=== PATIENT | male | born 1965 | race Caucasian/White ===

== ENCOUNTER 2019-01-23 17:32 | Observation (INO) | payer MEDICAID ==
[2019-01-23] MEDS ORDERED: Zofran 4 MG/2 ML VIAL IV ONE (18:13)
[2019-01-23] MEDS ORDERED: MORPHINE SULFATE 4 MG INJ IV ONE (18:13)
[2019-01-23] MEDS ORDERED: Sodium Chloride 0.9% 1000 ML 1,000 ML IV STA ×2 (18:13→18:42)
[2019-01-23] MEDS ORDERED: Zofran 4 MG/2 ML VIAL ONE (18:15)
[2019-01-23] MEDS ORDERED: MORPHINE SULFATE 4 MG INJ ONE (18:16)
[2019-01-23] MEDS ORDERED: Sodium Chloride 0.9% 1000 ML 1,000 ML ONE ×2 (18:16→19:24)
[2019-01-23 18:20] LABS: BASOPHIL % 0.3 % (0.0-0.4); Basophil (Absolute #) 0.03 (0-0.4); Eosinophil % 1.4 % (0.00-5.0); Eosinophil (Absolute #) 0.17 (0-0.5); Granulocyte Absolute (ANC) 8.36 (1.4-6.9); Granulocytes % 70.2 % (36.0-66.0); Hematocrit 56.7 % (42-50); Hemoglobin 19.8 gm/dl (12.5-18.0); Lymphocyte (Absolute #) 2.58 (1.0-4.6); Lymphocytes % 21.7 % (24.0-44.0); Mean Cell Volume 90.4 fl (78-100); Mean Corpuscular Hgb Concent. 34.9 g/dl (32-36); Mean Platelet Volume 11.1 fl (6-9.5); Monocyte (Absolute #) 0.76 (0.0-1.3); Monocytes % 6.4 % (0.0-12.0); Platelet Count 246 K/mm3 (150-450); Red Blood Count 6.27 M/mm3 (4.1-5.6); Red Cell Distribution Width 13.2 % (11.5-14.0); White Blood Count 11.9 K/mm3 (4.0-10.5)
[2019-01-23 18:24] LABS: Appearance SLIGHTLY CLOUDY (CLEAR); Bacteria MODERATE /HPF (NEGATIVE); Bilirubin NEGATIVE (NEGATIVE); Blood SMALL Ery/ul (0-5); Glucose NEGATIVE (NEGATIVE); Ketones MODERATE (NEGATIVE); Leukocyte Esterase MODERATE (NEGATIVE); Mucus SLIGHT /HPF (NEGATIVE); Nitrite NEGATIVE (NEGATIVE); Protein,Urine Dip 30 (Negative); RBC 0-2 /HPF (0-2); Specific Gravity 1.025 (1.005-1.025); Urobilinogen 4 mg/dL (0-1); WBC 51-100 /HPF (0-5)
[2019-01-23 18:25] LABS: Mean Corpuscular Hemoglobin 31.5 pg (26-32)
[2019-01-23 18:32] LABS: ALBUMIN 4.7 g/dL (3.5-5.0); ALKALINE PHOSPHATASE 92 U/L (38-126); AMYLASE 70 U/L (30-110); ANION GAP 15.9 MEQ/L (5-15); BLOOD UREA NITROGEN 17 mg/dL (9-20); CHLORIDE 98 mmol/L (98-107); Calcium 10.5 mg/dL (8.4-10.2); Carbon Dioxide 30 mmol/L (22-30); Creatinine 1 0.66 mg/dL (0.66-1.25); Glucose 100 mg/dL (74-106); Potassium 3.8 mmol/L (3.5-5.1); SGOT/AST 70 U/L (17-59); SGPT/ALT 85 U/L (0-50); SODIUM 139 mmol/L (137-145); Total Protein 8.8 g/dL (6.3-8.2)
[2019-01-23 18:37] LABS: Barbiturate,Urine NEGATIVE (NEGATIVE); Benzodiazepine,Urine NEGATIVE (NEGATIVE); Cocaine,Urine NEGATIVE (NEGATIVE); Methadone,Urine NEGATIVE (NEGATIVE); Opiate,Urine NEGATIVE (NEGATIVE); PCP,Urine NEGATIVE (NEGATIVE); THC,Urine POSITIVE (NEGATIVE)
[2019-01-23] MEDS ORDERED: ROCEPHIN 1 Gm-D5w 50 ml Bag** 1 G/50 ML IVPB IV STA (19:00)
--- NOTE | 2019-01-23 19:04 | ERPHSYRPT ---
- History of Present Illness Historian: patient Exam Limitations: no limitations Patient Subjective Stated Complaint: Abdominal pain Triage Nursing Assessment: Patient ambulated back to ED and transferred self to bed. Patient A+O X 3. Patient complains of abdominal pain since yesterday at noon. Patient complains of stabbing pain to abdomen 04/25. Abdomen hard and round and tender to touch with hypoactive BS X 4. Patient has notable umbilical hernia above pain. Patient complains of N/V. Patient denies diarrhea. Timing/Duration: yesterday Activities at Onset: other (fell and bumped his abdomen on the car while working on) Quality: stabbing, throbbing Abdominal Pain Onset Location: periumbilical Pain Radiation: no radiation Severity of Pain-Max: moderate Severity of Pain-Current: moderate Modifying Factors: Improves With: nothing Associated Symptoms: nausea, vomiting, other (periumbilical pain), No back, No chest pain, No diaphoresis, No diarrhea, No fever/chills, No fatigue, No headache, No heartburn, No loss of appetite, No neck pain, No rash, No shortness of breath, No syncope Previous symptoms: no prior history Hx Influenza Vaccination/Date Given: No Hx Pneumococcal Vaccination/Date Given: No Immunizations Up to Date: Yes <CITLALI FOWLER - Last Filed: 01/23/19 19:10> <JORDYN LINTON - Last Filed: 01/23/19 21:38> - History of Present Illness Time Seen by Provider: 01/23/19 18:14 Physician History: 53-year-old white male who states he is previously healthy. Patient arrives with complaint of periumbilical abdominal pain persistent vomiting symptoms since yesterday no fevers. Patient states he was working on his car and bumped his abdomen and pain persists. Patient has a known periumbilical hernia he states that this is tender. Past medical history is negative past surgical history is negative. (CITLALI FOWLER) Allergies/Adverse Reactions: No Known Drug Allergies Allergy (Unverified 01/23/19 17:51) Home Medications: No Reportable Medications [No Reported Medications] 01/23/19 [History] - Review of Systems Constitutional: No Fever, No Chills Eyes: No Symptoms Ears, Nose, & Throat: No Symptoms Respiratory: No Cough, No Dyspnea Abdominal/Gastrointestinal: Abdominal Pain, Nausea, Vomiting, Other (firmness of periumbilical hernia) Genitourinary Symptoms: No Dysuria Musculoskeletal: No Back Pain, No Neck Pain Skin: No Rash Neurological: No Dizziness, No Focal Weakness, No Sensory Changes Psychological: No Symptoms Endocrine: No Symptoms All Other Systems: Reviewed and Negative <CITLALI FOWLER - Last Filed: 01/23/19 19:10> - Past Medical History Pertinent Past Medical History: No Neurological History: No Pertinent History ENT History: No Pertinent History Cardiac History: No Pertinent History Respiratory History: No Pertinent History Endocrine Medical History: No Pertinent History Musculoskeletal History: No Pertinent History GI Medical History: No Pertinent History History: No Pertinent History Psycho-Social History: No Pertinent History Male Reproductive Disorders: No Pertinent History - Past Surgical History Past Surgical History: No Neuro Surgical History: No Pertinent History Cardiac: No Pertinent History Respiratory: No Pertinent History Gastrointestinal: No Pertinent History Genitourinary: No Pertinent History Musculoskeletal: No Pertinent History Male Surgical History: No Pertinent History - Social History Smoking Status: Current every day smoker How long have you smoked: years Exposure to second hand smoke: No Drug Use: none Patient Lives Alone: No <CITLALI FOWLER - Last Filed: 01/23/19 19:10> - Physical Exam General Appearance: moderate distress, alert Eye Exam: PERRL/EOMI, eyes nml inspection Ears, Nose, Throat Exam: normal ENT inspection, pharynx normal, moist mucous membranes Neck Exam: normal inspection, non-tender, supple, full range of motion Respiratory Exam: normal breath sounds, lungs clear, No respiratory distress Cardiovascular Exam: regular rate/rhythm, normal heart sounds, capillary refill <2 sec Gastrointestinal/Abdomen Exam: soft, normal bowel sounds, tenderness ( tenderness in periumbilical region with palpation), hernia (umbilical hernia firm tender) Back Exam: normal inspection, normal range of motion, No CVA tenderness, No vertebral tenderness Extremity Exam: normal inspection, normal range of motion, pelvis stable Neurologic Exam: alert, oriented x 3, cooperative, 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-XII 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 as tested, normal mood/affect, nml cerebellar function, sensation nml, No motor deficits Skin Exam: normal color, warm, dry SpO2 Interpretation: normal (95%) SpO2: 95 <CITLALI FOWLER - Last Filed: 01/23/19 19:10> - Nursing Vital Signs Nursing Vital Signs: Initial Vital Signs Temperature 97.5 F 01/23/19 17:52 Pulse Rate 75 01/23/19 17:52 Respiratory Rate 18 01/23/19 17:52 Blood Pressure 147/99 01/23/19 17:52 O2 Sat by Pulse Oximetry 97 01/23/19 17:52 Pain Scale Pain Intensity 6 - Course Nursing assessment & vital signs reviewed: Yes <CITLALI FOWLER - Last Filed: 01/23/19 19:10> Ordered Tests: Active Orders 24 hr Category Date Time Status IV Insertion STAT Care 01/23/19 18:13 Active ABDOMEN AND PELVIS W CONTRAST [CT] Stat Exams 01/23/19 18:44 Taken AMYLASE Stat Lab 01/23/19 18:10 Completed BLOOD CULTURE Stat Lab 01/23/19 18:43 Ordered BLOOD CULTURE Stat Lab 01/23/19 18:57 Received CBC W DIFF Stat Lab 01/23/19 18:10 Completed CMP Stat Lab 01/23/19 18:10 Completed CULTURE,URINE Stat Lab 01/23/19 18:10 Received ETHYL ALCOHOL Stat Lab 01/23/19 18:10 Completed LIPASE Stat Lab 01/23/19 18:10 Completed Lactic Acid Stat Lab 01/23/19 18:45 Completed UA W/RFX UR CULTURE Stat Lab 01/23/19 18:10 Completed Urine Triage Profile Stat Lab 01/23/19 18:10 Completed Transfer Order Routine Transfer 01/23/19 Ordered Medication Summary Generic Name Dose Route Start Last Admin Trade Name Freq PRN Reason Stop Dose Admin Metronidazole 500 mg in 100 mls @ 200 mls/hr 01/23/19 21:27 Flagyl 500 Mg Ivpb IV 01/23/19 21:56 STAT STA Discontinued Medications Generic Name Dose Route Start Last Admin Trade Name Freq PRN Reason Stop Dose Admin Hydromorphone HCl 1 mg 01/23/19 21:05 01/23/19 21:13 Hydromorphone 1 Mg/Ml Ampule IV 01/23/19 21:06 1 mg STAT ONE Administration Hydromorphone HCl Confirm 01/23/19 21:12 Hydromorphone 1 Mg/Ml Ampule Administered 01/23/19 21:13 Dose 1 mg .ROUTE .STK-MED ONE Sodium Chloride 1,000 mls @ 999 mls/hr 01/23/19 18:13 01/23/19 19:27 Sodium Chloride 0.9% 1000 Ml IV 01/23/19 19:13 Infused .Q1H1M STA Infusion Sodium Chloride Confirm 01/23/19 18:16 Sodium Chloride 0.9% 1000 Ml Administered 01/23/19 18:17 Dose 1,000 mls @ ud .ROUTE .STK-MED ONE Sodium Chloride 1,000 mls @ 999 mls/hr 01/23/19 18:42 01/23/19 19:27 Sodium Chloride 0.9% 1000 Ml IV 01/23/19 19:42 999 mls/hr .Q1H1M STA Administration Ceftriaxone Sodium/Dextrose 1 g in 50 mls @ 100 mls/hr 01/23/19 19:00 19:43 Rocephin 1 Gm-D5w 50 Ml Bag IV 01/23/19 19:29 100 mls/hr STAT STA 100 mls/hr Administration Sodium Chloride Confirm 01/23/19 19:24 Sodium Chloride 0.9% 1000 Ml Administered 01/23/19 19:25 Dose 1,000 mls @ ud .ROUTE .STK-MED ONE Ceftriaxone Sodium/Dextrose Confirm 01/23/19 19:37 Rocephin 1 Gm-D5w 50 Ml Bag Administered 01/23/19 19:38 Dose 1 g in 50 mls @ ud IV .STK-MED ONE Morphine Sulfate 4 mg 01/23/19 18:13 01/23/19 18:18 Morphine Sulfate 4 Mg Inj IV 01/23/19 18:14 4 mg STAT ONE Administration Morphine Sulfate Confirm 01/23/19 18:16 Morphine Sulfate 4 Mg Inj Administered 01/23/19 18:17 Dose 4 mg .ROUTE .STK-MED ONE Ondansetron HCl 4 mg 01/23/19 18:13 01/23/19 18:18 Zofran 4 Mg/2 Ml Vial IV 01/23/19 18:14 4 mg STAT ONE Administration Ondansetron HCl Confirm 01/23/19 18:15 Zofran 4 Mg/2 Ml Vial Administered 01/23/19 18:16 Dose 4 mg .ROUTE .STK-MED ONE Lab/Rad Data: Laboratory Result Diagrams 01/23/19 18:10 01/23/19 18:10 Laboratory Results 01/23/19 01/23/19 01/23/19 Range/Units 18:45 18:10 18:10 WBC (4.0-10.5) K/mm3 RBC (4.1-5.6) M/mm3 Hgb (12.5-18.0) gm/dl Hct (42-50) % MCV (78-100) fl MCH (26-32) pg MCHC (32-36) g/dl RDW (11.5-14.0) % Plt Count (150-450) K/mm3 MPV (6-9.5) fl Gran % (36.0-66.0) % Eos # (Auto) (0-0.5) Absolute Lymphs (auto) (1.0-4.6) Absolute Monos (auto) (0.0-1.3) Lymphocytes % (24.0-44.0) % Monocytes % (0.0-12.0) % Eosinophils % (0.00-5.0) % Basophils % (0.0-0.4) % Absolute Granulocytes (1.4-6.9) Basophils # (0-0.4) Sodium (137-145) mmol/L Potassium (3.5-5.1) mmol/L Chloride (98-107) mmol/L Carbon Dioxide (22-30) mmol/L Anion Gap (5-15) MEQ/L BUN (9-20) mg/dL Creatinine (0.66-1.25) mg/dL Estimated GFR ML/MIN Glucose (74-106) mg/dL Lactic Acid 1.8 (0.4-2.0) Calcium (8.4-10.2) mg/dL Total Bilirubin (0.2-1.3) mg/dL AST (17-59) U/L ALT (0-50) U/L Alkaline Phosphatase (38-126) U/L Serum Total Protein (6.3-8.2) g/dL Albumin (3.5-5.0) g/dL Amylase (30-110) U/L Lipase (23-300) U/L Urine Color DARK YELLOW (YELLOW) Urine Appearance SLIGHTLY CLOUDY (CLEAR) Urine pH 6.0 (5-6) Ur Specific Brenton 1.025 (1.005-1.025) Urine Protein 30 (Negative) Urine Ketones MODERATE (NEGATIVE) Urine Blood SMALL (0-5) Darshan/ul Urine Nitrite NEGATIVE (NEGATIVE) Urine Bilirubin NEGATIVE (NEGATIVE) Urine Urobilinogen 4 (0-1) mg/dL Ur Leukocyte Esterase MODERATE (NEGATIVE) Urine WBC (Auto) 51-100 (0-5) /HPF Urine RBC (Auto) 0-2 (0-2) /HPF U Epithel Cells (Auto) NONE (FEW) /HPF Urine Bacteria (Auto) MODERATE (NEGATIVE) /HPF Urine Mucus (Auto) SLIGHT (NEGATIVE) /HPF Urine Culture Reflexed YES (NO) Urine Glucose NEGATIVE (NEGATIVE) mg/dL Urine Opiates Level NEGATIVE (NEGATIVE) Ur Methadone NEGATIVE (NEGATIVE) Urine Barbiturates NEGATIVE (NEGATIVE) Ur Phencyclidine (PCP) NEGATIVE (NEGATIVE) Urine Amphetamine POSITIVE (NEGATIVE) U Benzodiazepine Level NEGATIVE (NEGATIVE) Urine Cocaine NEGATIVE (NEGATIVE) Urine Marijuana (THC) POSITIVE (NEGATIVE) Ethyl Alcohol (0-10) mg/dL 01/23/19 01/23/19 01/23/19 Range/Units 18:10 18:10 18:10 WBC 11.9 H (4.0-10.5) K/mm3 RBC 6.27 H* (4.1-5.6) M/mm3 Hgb 19.8 H (12.5-18.0) gm/dl Hct 56.7 H (42-50) % MCV 90.4 (78-100) fl MCH 31.5 (26-32) pg MCHC 34.9 (32-36) g/dl RDW 13.2 (11.5-14.0) % Plt Count 246 (150-450) K/mm3 MPV 11.1 H (6-9.5) fl Gran % 70.2 H (36.0-66.0) % Eos # (Auto) 0.17 (0-0.5) Absolute Lymphs (auto) 2.58 (1.0-4.6) Absolute Monos (auto) 0.76 (0.0-1.3) Lymphocytes % 21.7 L (24.0-44.0) % Monocytes % 6.4 (0.0-12.0) % Eosinophils % 1.4 (0.00-5.0) % Basophils % 0.3 (0.0-0.4) % Absolute Granulocytes 8.36 H (1.4-6.9) Basophils # 0.03 (0-0.4) Sodium 139 (137-145) mmol/L Potassium 3.8 (3.5-5.1) mmol/L Chloride 98 (98-107) mmol/L Carbon Dioxide 30 (22-30) mmol/L Anion Gap 15.9 H (5-15) MEQ/L BUN 17 (9-20) mg/dL Creatinine 0.66 (0.66-1.25) mg/dL Estimated GFR > 60.0 ML/MIN Glucose 100 (74-106) mg/dL Lactic Acid (0.4-2.0) Calcium 10.5 H (8.4-10.2) mg/dL Total Bilirubin 1.00 (0.2-1.3) mg/dL AST 70 H (17-59) U/L ALT 85 H (0-50) U/L Alkaline Phosphatase 92 (38-126) U/L Serum Total Protein 8.8 H (6.3-8.2) g/dL Albumin 4.7 (3.5-5.0) g/dL Amylase 70 (30-110) U/L Lipase 41 (23-300) U/L Urine Color (YELLOW) Urine Appearance (CLEAR) Urine pH (5-6) Ur Specific Brenton (1.005-1.025) Urine Protein (Negative) Urine Ketones (NEGATIVE) Urine Blood (0-5) Darshan/ul Urine Nitrite (NEGATIVE) Urine Bilirubin (NEGATIVE) Urine Urobilinogen (0-1) mg/dL Ur Leukocyte Esterase (NEGATIVE) Urine WBC (Auto) (0-5) /HPF Urine RBC (Auto) (0-2) /HPF U Epithel Cells (Auto) (FEW) /HPF Urine Bacteria (Auto) (NEGATIVE) /HPF Urine Mucus (Auto) (NEGATIVE) /HPF Urine Culture Reflexed (NO) Urine Glucose (NEGATIVE) mg/dL Urine Opiates Level (NEGATIVE) Ur Methadone (NEGATIVE) Urine Barbiturates (NEGATIVE) Ur Phencyclidine (PCP) (NEGATIVE) Urine Amphetamine (NEGATIVE) U Benzodiazepine Level (NEGATIVE) Urine Cocaine (NEGATIVE) Urine Marijuana (THC) (NEGATIVE) Ethyl Alcohol < 10 (0-10) mg/dL - Progress Progress: improved <CITLALI FOWLER - Last Filed: 01/23/19 19:10> - Progress Progress: improved Discussed with : Dennis Counseled pt/family regarding: lab results, diagnosis, rad results <JORDYN LINTON - Last Filed: 01/23/19 21:38> - Progress Progress Note: 01/23/19 19:07 53-year-old white male arrives with complaint of pain in his periumbilical region since yesterday he states he's been having persistent vomiting. Patient arrives in moderate distress he has tenderness in the periumbilical region he does have an umbilical hernia which is firm and tender. Patient does have 50-100 white cells per high-power field in his urine, Blood cultures have been ordered lactate has been ordered lactate is 1.8 Patient with CBC showing white cells 11.9 red blood cell elevated 6.29 hemoglobin elevated 19.8 hematocrit elevated at 56.7 platelets 246 blood alcohol level is less than 10 chemistries sodium 139 potassium 3.8 chloride 98 bicarbonate 30 BUN 17 creatinine 0.66 glucose 100 anion gap is 15.9 AST is elevated at 70 ALT is rib elevated at 85 total bilirubin is normal at 1 IV normal saline 2 L have been ordered for this patient morphine 4 mg Zofran 4 mg have been ordered blood cultures have been ordered Rocephin 1 g IV has been ordered. CT abdomen and pelvis has been ordered. Case is discussed with Dr. Linton. He will assume care of this patient secondary to shift change. (CITLALI FOWLER) 01/23/19 21:28 ct abd/pelvis-incarcerated umbilical hernia. with high grade prox ileal small bowel obstruction. in same area. i was able to reduce incarcerated umbilical. pain improved but not completely relieved. i reviewed pt hx, condition, lab and ct abd pelvis results with him. he agrees observation, iv flagyl, npo and gen surgery consult. (JORDYN LINTON) <CITLALI FOWLER - Last Filed: 01/23/19 19:10> - Departure Departure Disposition: Observation Critical Care Time: No <JORDYN LINTON - Last Filed: 01/23/19 21:38> - Departure Clinical Impression: UTI (urinary tract infection), Umbilical hernia, incarcerated Condition: Stable Referrals: DOCTOR,NO FAMILY [Primary Care Provider] -
[2019-01-23 19:23] LABS: Amphetamine,Urine POSITIVE (NEGATIVE)
[2019-01-23] MEDS ORDERED: ROCEPHIN 1 Gm-D5w 50 ml Bag** 1 G/50 ML IVPB IV ONE (19:37)
[2019-01-23] MEDS ORDERED: Hydromorphone 1 mg/ml Ampule IV ONE (21:05)
[2019-01-23] MEDS ORDERED: Hydromorphone 1 mg/ml Ampule ONE (21:12)
[2019-01-23] MEDS ORDERED: FLAGYL 500 MG IVPB 500 MG/100 ML BAG IV STA (21:27)
[2019-01-23] MEDS ORDERED: FLAGYL 500 MG IVPB 500 MG/100 ML BAG IV ONE (21:42)
[2019-01-23] MEDS ORDERED: FEVERALL 650 MG PR PRN (22:05)
[2019-01-23] MEDS ORDERED: Zofran 4 MG/2 ML VIAL IV PRN (22:05)
[2019-01-23] MEDS: Sodium Chloride 0.9% 1000 ML 1,000 ML IV SCH (23:02)
--- NOTE | 2019-01-24 07:58 | PCM.HP ---
History of Present Illness - Chief Complaint Chief Complaint: Incarcerated Umbilical Hernia, UTI History of Present Illness: is a 53 year old male with no physician who was standing on a bucket leaning to work under the orozco of a car last evening, the bucket slipped and he fell injuring his abdomen on the bumper/grill of the car, had significant abdominal pain so came to ER. CT showed evidence of incarcerated umbilical hernia, but was able to be manually reduced by Dr Puckett. His abdomen is sore today but he is feeling better. He was also dehydrated from the heat yesterday with ketonuria and concern for UTI. patient smokes 1- 1 1/2 packs/day cigarettes , no cardiac history. - Review of Systems Constitutional: No Fever, No Chills Respiratory: No Cough, No Short Of Breath Abdominal/Gastrointestinal: Abdominal Pain, No Nausea, No Vomiting, No Diarrhea Genitourinary Symptoms: No Dysuria Skin: No Rash All Other Systems: Reviewed and Negative Medications & Allergies Home Medications: Home Medication List No Reportable Medications [No Reported Medications] 01/23/19 [History Confirmed 01/23/19] Allergies/Adverse Reactions: Allergies Allergy/AdvReac Type Severity Reaction Status Date / Time No Known Drug Allergies Allergy Unverified 01/23/19 17:51 - Past Medical History Past Medical History: No Neurological History: No Pertinent History ENT History: No Pertinent History Cardiac History: No Pertinent History Respiratory History: No Pertinent History Endocrine Medical History: No Pertinent History Musculoskelatal History: No Pertinent History GI Medical History: No Pertinent History History: No Pertinent History Pyscho-Social History: No Pertinent History Male Reproductive Disorders: No Pertinent History - Past Surgical History Past Surgical History: No Neuro Surgical History: No Pertinent History Cardiac History: No Pertinent History Respiratory Surgery: No Pertinent History GI Surgical History: No Pertinent History Genitourinary Surgical Hx: No Pertinent History Musculskeletal Surgical Hx: No Pertinent History Male Surgical History: No Pertinent History - Social History Smoking Status: Current every day smoker How long have you smoked: years Exposure to second hand smoke: Yes Alcohol: None Drug Use: none - Physical Exam Vital Signs: Vital Signs - 24 hr Temp Pulse Resp BP Pulse Ox 01/24/19 04:05 98.4 F 65 16 111/60 98 01/23/19 22:30 98.2 F 67 16 131/68 99 01/23/19 21:55 57 L 18 159/97 100 01/23/19 20:30 56 L 18 100 01/23/19 19:40 50 L 18 135/96 97 01/23/19 19:10 95 01/23/19 18:24 55 L 18 147/95 95 01/23/19 17:52 97.5 F 75 18 147/99 97 Oxygen-Last 24 hours O2 Percentage 2 Liters = 28% O2 Percentage 2 Liters = 28% General Appearance: no apparent distress Neurologic Exam: alert, oriented x 3 Eye Exam: PERRL/EOMI, eyes nml inspection Respiratory Exam: normal breath sounds, lungs clear, No respiratory distress Cardiovascular Exam: regular rate/rhythm, normal heart sounds, normal peripheral pulses Gastrointestinal/Abdomen Exam: normal bowel sounds, other (soft, reducible umbilical hernia), No tenderness, No distention, No mass, No guarding Extremity Exam: normal inspection, normal range of motion, pelvis stable Skin Exam: normal color, warm, dry, No rash Results - Labs Lab/Micro Results: Lab Results-Last 24 Hours 01/23/19 01/23/19 01/23/19 Range/Units 18:10 18:10 18:10 WBC 11.9 H (4.0-10.5) K/mm3 RBC 6.27 H* (4.1-5.6) M/mm3 Hgb 19.8 H (12.5-18.0) gm/dl Hct 56.7 H (42-50) % MCV 90.4 (78-100) fl MCH 31.5 (26-32) pg MCHC 34.9 (32-36) g/dl RDW 13.2 (11.5-14.0) % Plt Count 246 (150-450) K/mm3 MPV 11.1 H (6-9.5) fl Gran % 70.2 H (36.0-66.0) % Eos # (Auto) 0.17 (0-0.5) Absolute Lymphs (auto) 2.58 (1.0-4.6) Absolute Monos (auto) 0.76 (0.0-1.3) Lymphocytes % 21.7 L (24.0-44.0) % Monocytes % 6.4 (0.0-12.0) % Eosinophils % 1.4 (0.00-5.0) % Basophils % 0.3 (0.0-0.4) % Absolute Granulocytes 8.36 H (1.4-6.9) Basophils # 0.03 (0-0.4) Sodium 139 (137-145) mmol/L Potassium 3.8 (3.5-5.1) mmol/L Chloride 98 (98-107) mmol/L Carbon Dioxide 30 (22-30) mmol/L Anion Gap 15.9 H (5-15) MEQ/L BUN 17 (9-20) mg/dL Creatinine 0.66 (0.66-1.25) mg/dL Estimated GFR > 60.0 ML/MIN Glucose 100 (74-106) mg/dL Lactic Acid (0.4-2.0) Calcium 10.5 H (8.4-10.2) mg/dL Total Bilirubin 1.00 (0.2-1.3) mg/dL AST 70 H (17-59) U/L ALT 85 H (0-50) U/L Alkaline Phosphatase 92 (38-126) U/L Serum Total Protein 8.8 H (6.3-8.2) g/dL Albumin 4.7 (3.5-5.0) g/dL Amylase 70 (30-110) U/L Lipase 41 (23-300) U/L Urine Color (YELLOW) Urine Appearance (CLEAR) Urine pH (5-6) Ur Specific [place] (1.005-1.025) Urine Protein (Negative) Urine Ketones (NEGATIVE) Urine Blood (0-5) Darshan/ul Urine Nitrite (NEGATIVE) Urine Bilirubin (NEGATIVE) Urine Urobilinogen (0-1) mg/dL Ur Leukocyte Esterase (NEGATIVE) Urine WBC (Auto) (0-5) /HPF Urine RBC (Auto) (0-2) /HPF U Epithel Cells (Auto) (FEW) /HPF Urine Bacteria (Auto) (NEGATIVE) /HPF Urine Mucus (Auto) (NEGATIVE) /HPF Urine Culture Reflexed (NO) Urine Glucose (NEGATIVE) mg/dL Urine Opiates Level (NEGATIVE) Ur Methadone (NEGATIVE) Urine Barbiturates (NEGATIVE) Ur Phencyclidine (PCP) (NEGATIVE) Urine Amphetamine (NEGATIVE) U Benzodiazepine Level (NEGATIVE) Urine Cocaine (NEGATIVE) Urine Marijuana (THC) (NEGATIVE) Ethyl Alcohol < 10 (0-10) mg/dL 01/23/19 01/23/19 01/23/19 Range/Units 18:10 18:10 18:45 WBC (4.0-10.5) K/mm3 RBC (4.1-5.6) M/mm3 Hgb (12.5-18.0) gm/dl Hct (42-50) % MCV (78-100) fl MCH (26-32) pg MCHC (32-36) g/dl RDW (11.5-14.0) % Plt Count (150-450) K/mm3 MPV (6-9.5) fl Gran % (36.0-66.0) % Eos # (Auto) (0-0.5) Absolute Lymphs (auto) (1.0-4.6) Absolute Monos (auto) (0.0-1.3) Lymphocytes % (24.0-44.0) % Monocytes % (0.0-12.0) % Eosinophils % (0.00-5.0) % Basophils % (0.0-0.4) % Absolute Granulocytes (1.4-6.9) Basophils # (0-0.4) Sodium (137-145) mmol/L Potassium (3.5-5.1) mmol/L Chloride (98-107) mmol/L Carbon Dioxide (22-30) mmol/L Anion Gap (5-15) MEQ/L BUN (9-20) mg/dL Creatinine (0.66-1.25) mg/dL Estimated GFR ML/MIN Glucose (74-106) mg/dL Lactic Acid 1.8 (0.4-2.0) Calcium (8.4-10.2) mg/dL Total Bilirubin (0.2-1.3) mg/dL AST (17-59) U/L ALT (0-50) U/L Alkaline Phosphatase (38-126) U/L Serum Total Protein (6.3-8.2) g/dL Albumin (3.5-5.0) g/dL Amylase (30-110) U/L Lipase (23-300) U/L Urine Color DARK YELLOW (YELLOW) Urine Appearance SLIGHTLY CLOUDY (CLEAR) Urine pH 6.0 (5-6) Ur Specific [place] 1.025 (1.005-1.025) Urine Protein 30 (Negative) Urine Ketones MODERATE (NEGATIVE) Urine Blood SMALL (0-5) Darshan/ul Urine Nitrite NEGATIVE (NEGATIVE) Urine Bilirubin NEGATIVE (NEGATIVE) Urine Urobilinogen 4 (0-1) mg/dL Ur Leukocyte Esterase MODERATE (NEGATIVE) Urine WBC (Auto) 51-100 (0-5) /HPF Urine RBC (Auto) 0-2 (0-2) /HPF U Epithel Cells (Auto) NONE (FEW) /HPF Urine Bacteria (Auto) MODERATE (NEGATIVE) /HPF Urine Mucus (Auto) SLIGHT (NEGATIVE) /HPF Urine Culture Reflexed YES (NO) Urine Glucose NEGATIVE (NEGATIVE) mg/dL Urine Opiates Level NEGATIVE (NEGATIVE) Ur Methadone NEGATIVE (NEGATIVE) Urine Barbiturates NEGATIVE (NEGATIVE) Ur Phencyclidine (PCP) NEGATIVE (NEGATIVE) Urine Amphetamine POSITIVE (NEGATIVE) U Benzodiazepine Level NEGATIVE (NEGATIVE) Urine Cocaine NEGATIVE (NEGATIVE) Urine Marijuana (THC) POSITIVE (NEGATIVE) Ethyl Alcohol (0-10) mg/dL - Radiology Impressions Radiology Exams & Impressions: Radiology Procedures Category Date Time Status ABDOMEN AND PELVIS W CONTRAST [CT] Stat Exams 01/23/19 18:44 Taken Assessment/Plan (1) Umbilical hernia, incarcerated Current Visit: Yes Status: Acute Assessment & Plan: currently soft and reducible, npo and awaiting surgical consult Code(s): K42.0 - UMBILICAL HERNIA WITH OBSTRUCTION, WITHOUT GANGRENE (2) Dehydration Current Visit: Yes Status: Acute Assessment & Plan: volume contraction on cbc with ketonuria, receiving fluids. likely elevated h/h likely related to cigarette use Code(s): E86.0 - DEHYDRATION (3) UTI (urinary tract infection) Current Visit: Yes Status: Acute Assessment & Plan: on rocephin, culture pending. Code(s): N39.0 - URINARY TRACT INFECTION, SITE NOT SPECIFIED
[2019-01-24 08:31] LABS: BASOPHIL % 0.3 % (0.0-0.4); Basophil (Absolute #) 0.03 (0-0.4); Eosinophil % 4.9 % (0.00-5.0); Eosinophil (Absolute #) 0.54 (0-0.5); Granulocyte Absolute (ANC) 6.84 (1.4-6.9); Granulocytes % 62.4 % (36.0-66.0); Hematocrit 48.9 % (42-50); Hemoglobin 16.9 gm/dl (12.5-18.0); Lymphocyte (Absolute #) 2.77 (1.0-4.6); Lymphocytes % 25.3 % (24.0-44.0); Mean Cell Volume 92.8 fl (78-100); Mean Corpuscular Hemoglobin 32.1 pg (26-32); Mean Corpuscular Hgb Concent. 34.6 g/dl (32-36); Mean Platelet Volume 10.9 fl (6-9.5); Monocyte (Absolute #) 0.78 (0.0-1.3); Monocytes % 7.1 % (0.0-12.0); Platelet Count 203 K/mm3 (150-450); Red Blood Count 5.27 M/mm3 (4.1-5.6); Red Cell Distribution Width 12.9 % (11.5-14.0)
[2019-01-24] MEDS: Sodium Chloride 0.9% 1000 ML 1,000 ML IV SCH (08:58)
--- NOTE | 2019-01-24 08:59 | XRAY ---
Indication: Periumbilical abdomen pain following fall. Multiple contiguous axial images obtained through the abdomen and pelvis using 80 cc Isovue 370 contrast only. Comparison: None Lung bases demonstrates bibasilar dependent atelectasis and left lower lobe calcified granuloma. No infiltrate or effusion. Heart is not enlarged. There is a small 1.7 cm wide umbilical hernia defect with knuckle of small bowel loop herniating. The herniated loop of small bowel appears fluid distended and there is free fluid in the herniated sac favoring incarceration. The stomach and small bowel loops are moderately fluid distended to the level of the hernia suggesting partial obstruction. There is distal colonic bowel gas. Appendix not identified. Additional tiny left colic gutter and pelvic free fluid. No walled off fluid collection or free air. Liver demonstrates a few hepatic cysts, largest 1.7 cm in the right lobe adjacent to the natan hepatis. Remaining liver, gallbladder, pancreas, spleen, adrenal glands, kidneys, ureters, and bladder appear unremarkable. Mild aortoiliac calcifications. No AAA or pathologic retroperitoneal lymphadenopathy. Osseous structures intact with mild degenerative changes throughout the spine. Impression: 1. Umbilical hernia with herniated small bowel loop and CT features favoring incarceration with subsequent partial small bowel obstruction. Small free fluid favored to be reactive. No free air. 2. Incidental hepatic cysts and left lung base calcified granuloma. Comment: Preliminary interpretation was made by [facility]. No critical discrepancy. CT DI 19.56
--- NOTE | 2019-01-24 09:01 | XRAY ---
Indication: Hernia. Abdominal injury. Comparison: None Portable apical lordotic chest demonstrates right hemidiaphragm elevation with adjacent discoid atelectasis/scarring. Remaining heart and lungs normal. Bony thorax intact with mild degenerative changes. Impression: Right hemidiaphragm elevation with adjacent atelectasis/scarring. No acute or active disease.
[2019-01-24] MEDS: Pepcid 20 MG VIAL IV SCH (09:16)
[2019-01-24 09:28] LABS: ANION GAP 10.4 MEQ/L (5-15); BLOOD UREA NITROGEN 16 mg/dL (9-20); CHLORIDE 105 mmol/L (98-107); Carbon Dioxide 27 mmol/L (22-30); Glucose 85 mg/dL (74-106); Potassium 3.5 mmol/L (3.5-5.1); SODIUM 138 mmol/L (137-145)
[2019-01-24 11:29] LABS: Calcium 8.7 mg/dL (8.4-10.2)
[2019-01-24] MEDS ORDERED: CEFAZOLIN 2 GM-D5W BAG** 2 GM/50 ML ML IV SCH (13:30)
[2019-01-24] MEDS ORDERED: Lactated Ringers 1,000 ML IV SCH (13:30)
[2019-01-24] MEDS ORDERED: SUBLIMAZE 250 MCG/5 ML ONE (13:51)
[2019-01-24] MEDS ORDERED: DIPRIVAN 200 MG/20 ML IV ONE (13:51)
[2019-01-24] MEDS ORDERED: Zemuron 100 MG/10 ML ONE ×2 (13:51→15:42)
[2019-01-24] MEDS ORDERED: Versed 2 MG/2 ML Injection ONE (13:51)
[2019-01-24] MEDS ORDERED: Sensorcaine 0.25% 10 ML ONE (14:07)
[2019-01-24] MEDS ORDERED: Lactated Ringers 2,000 ML IV ONE (14:07)
[2019-01-24] MEDS ORDERED: Quelicin Fliptop 200 MG/10 ML ONE (14:26)
[2019-01-24] MEDS ORDERED: APRESOLINE 20 MG/ML INJ ONE (15:23)
[2019-01-24] MEDS ORDERED: DILAUDID 2 MG INJECTION ONE ×2 (15:49→16:14)
[2019-01-24] MEDS ORDERED: BRIDION 200MG/2ML IV ONE (15:51)
[2019-01-24] MEDS ORDERED: Zofran 4 MG/2 ML VIAL ONE (15:52)
[2019-01-24] MEDS ORDERED: MORPHINE SULFATE 10 MG/ML IV PRN (16:04)
[2019-01-24] MEDS ORDERED: SUBLIMAZE 100 MCG/2 ML ONE (16:25)
[2019-01-24] MEDS ORDERED: MORPHINE SULFATE 10 MG/ML ONE (16:41)
[2019-01-24] MEDS ORDERED: TYLENOL 325 MG PO PRN (17:22)
[2019-01-24] MEDS ORDERED: MORPHINE SULFATE 4 MG INJ IV PRN (17:24)
[2019-01-24] MEDS: NORCO 5/325 MG PO PRN ×2 (17:50→22:28)
[2019-01-24] MEDS: Lactated Ringers 1,000 ML IV SCH (20:08)
[2019-01-24] MEDS ORDERED: ROCEPHIN 1 Gm-D5w 50 ml Bag** 1 G/50 ML IVPB IV SCH (22:00)
[2019-01-25 05:38] LABS: BASOPHIL % 0.5 % (0.0-0.4); Basophil (Absolute #) 0.05 (0-0.4); Eosinophil % 3.6 % (0.00-5.0); Eosinophil (Absolute #) 0.37 (0-0.5); Granulocyte Absolute (ANC) 6.44 (1.4-6.9); Granulocytes % 63.3 % (36.0-66.0); Hematocrit 45.5 % (42-50); Hemoglobin 15.4 gm/dl (12.5-18.0); Lymphocyte (Absolute #) 2.43 (1.0-4.6); Lymphocytes % 23.9 % (24.0-44.0); Mean Cell Volume 94.8 fl (78-100); Mean Corpuscular Hemoglobin 32.1 pg (26-32); Mean Corpuscular Hgb Concent. 33.8 g/dl (32-36); Mean Platelet Volume 11.4 fl (6-9.5); Monocyte (Absolute #) 0.88 (0.0-1.3); Monocytes % 8.7 % (0.0-12.0); Platelet Count 165 K/mm3 (150-450); Red Cell Distribution Width 12.7 % (11.5-14.0); White Blood Count 10.2 K/mm3 (4.0-10.5)
[2019-01-25] MEDS: Lactated Ringers 1,000 ML IV SCH ×2 (06:31→20:23)
[2019-01-25] MEDS: NORCO 5/325 MG PO PRN ×4 (06:33→21:48)
[2019-01-25 07:03] LABS: ALBUMIN 3.5 g/dL (3.5-5.0); ALKALINE PHOSPHATASE 57 U/L (38-126); ANION GAP 9.6 MEQ/L (5-15); BLOOD UREA NITROGEN 13 mg/dL (9-20); CHLORIDE 101 mmol/L (98-107); Calcium 8.2 mg/dL (8.4-10.2); Carbon Dioxide 28 mmol/L (22-30); Creatinine 1 0.59 mg/dL (0.66-1.25); Glucose 103 mg/dL (74-106); Potassium 3.4 mmol/L (3.5-5.1); SGOT/AST 52 U/L (17-59); SGPT/ALT 61 U/L (0-50); SODIUM 135 mmol/L (137-145); Total Protein 6.7 g/dL (6.3-8.2)
--- NOTE | 2019-01-25 08:00 | CONS ---
CONSULT DATE: 01/24/2019 REASON FOR CONSULT: Abdominal pain. HISTORY: This patient presents with nausea, vomiting and abdominal pain. The drug screen was positive for meth and marijuana. He had a CT scan showing incarcerated umbilical hernia with small bowel obstruction secondary to the hernia. The hernia was reduced by the emergency room physician last night. He has passed a little bit of gas today. His pain has been better but still somewhat present today. He does no longer feel nauseated. He denies any chest pain or shortness of breath. PAST MEDICAL HISTORY: None. PAST SURGICAL HISTORY: None. REVIEW OF SYSTEMS: Twelve systems reviewed and negative except for in the history of present illness. MEDICATIONS: None. ALLERGIES: NKDA. SOCIAL HISTORY: Positive for methamphetamine and marijuana. FAMILY HISTORY: Noncontributory. LAB DATA AND TESTS: CT scan with incarcerated umbilical hernia with small bowel obstruction secondary to incarceration. PHYSICAL EXAMINATION: GENERAL: No acute distress. HEENT: Sclera nonicteric. Extraocular movements intact. NECK: Supple. No JVD. CHEST: Nonlabored breathing. ABDOMEN: Mildly distended, soft, tenderness at his umbilicus and mostly reduced hernia that is fairly small. NEURO: Awake, alert and oriented. PSYCH: Appropriate mood and affect. ASSESSMENT: Incarcerated umbilical hernia with small bowel obstruction secondary to incarceration status post manual reduction. PLAN: Will plan for diagnostic laparoscopy to evaluate the reduced small bowel and if the small bowel is in good condition plan to continue with laparoscopic repair of his umbilical hernia with mesh. The patient discussed risks and benefits of surgery and alternatives to surgery including observation or even outpatient surgery at a later date after a trial of observation. The patient wished to proceed with surgery, was aware of potential complications such as mesh infection, bowel obstruction or other complication.
--- NOTE | 2019-01-25 08:33 | PCM.NOTE ---
Date and Time: 01/25/19830 Subjective Assessment: pt had laparoscopic hernia repair yesterday, he is tolerating liquids. +flatus, no solid food yet. overall feels well, pain is controlled Objective Exam General Appearance: no apparent distress, alert Respiratory Exam: normal breath sounds, lungs clear, No respiratory distress Cardiovascular Exam: regular rate/rhythm, normal heart sounds Gastrointestinal/Abdomen Exam: soft (dressings c/d/i), No mass, No guarding Extremity Exam: normal inspection, normal range of motion OBJECTIVE DATA Vital Signs: Vital Signs - 24 hr Temp Pulse Resp BP Pulse Ox 01/25/19 07:19 97.8 F 55 L 18 129/76 98 01/25/19 04:35 98.4 F 79 16 127/71 100 01/24/19 23:40 98.7 F 72 16 127/75 100 01/24/19 20:30 98.3 F 68 15 163/90 99 01/24/19 19:30 98.2 F 56 L 14 170/84 99 01/24/19 19:21 97 01/24/19 18:30 97.5 F 67 14 140/86 98 01/24/19 18:00 97.6 F 73 12 131/69 95 01/24/19 17:30 97.5 F 72 12 148/75 94 L 01/24/19 17:24 94 L 01/24/19 17:20 88 L 01/24/19 17:15 97.7 F 82 12 138/75 94 L 01/24/19 13:16 98.5 F 54 L 18 131/60 92 L 01/24/19 12:03 98.5 F 54 L 18 131/60 92 L 01/24/19 11:39 98.5 F 54 L 18 131/60 92 L 01/24/19 09:55 98.6 F 66 16 119/66 94 L Oxygen-Last 24 hours O2 Percentage 3 Liters = 32% O2 Percentage 3 Liters = 32% O2 Percentage 3 Liters = 32% O2 Percentage 3 Liters = 32% O2 Percentage 3 Liters = 32% O2 Percentage 3 Liters = 32% O2 Percentage 3 Liters = 32% Pain Assessment - Last Documented Pain Intensity 4 Pain Scale Used 0-10 Pain Scale Intake and Output: Intake & Output 01/22/19 01/23/19 01/24/19 01/25/19 11:59 11:59 11:59 11:59 Intake Total 1066 3003 Balance 1066 3003 Weight 88.6 kg 89.3 kg Lab Results: Lab Results-Last 24 Hours 01/24/19 01/24/19 01/25/19 Range/Units 08:21 08:21 05:15 WBC 11.0 H 10.2 (4.0-10.5) K/mm3 RBC 5.27 4.80 (4.1-5.6) M/mm3 Hgb 16.9 15.4 (12.5-18.0) gm/dl Hct 48.9 45.5 (42-50) % MCV 92.8 94.8 (78-100) fl MCH 32.1 H 32.1 H (26-32) pg MCHC 34.6 33.8 (32-36) g/dl RDW 12.9 12.7 (11.5-14.0) % Plt Count 203 165 (150-450) K/mm3 MPV 10.9 H 11.4 H (6-9.5) fl Gran % 62.4 63.3 (36.0-66.0) % Eos # (Auto) 0.54 H 0.37 (0-0.5) Absolute Lymphs (auto) 2.77 2.43 (1.0-4.6) Absolute Monos (auto) 0.78 0.88 (0.0-1.3) Lymphocytes % 25.3 23.9 L (24.0-44.0) % Monocytes % 7.1 8.7 (0.0-12.0) % Eosinophils % 4.9 3.6 (0.00-5.0) % Basophils % 0.3 0.5 (0.0-0.4) % Absolute Granulocytes 6.84 6.44 (1.4-6.9) Basophils # 0.03 0.05 (0-0.4) Sodium 138 (137-145) mmol/L Potassium 3.5 (3.5-5.1) mmol/L Chloride 105 (98-107) mmol/L Carbon Dioxide 27 (22-30) mmol/L Anion Gap 10.4 (5-15) MEQ/L BUN 16 (9-20) mg/dL Creatinine 0.70 (0.66-1.25) mg/dL Estimated GFR > 60.0 ML/MIN Glucose 85 (74-106) mg/dL Calcium 8.7 D (8.4-10.2) mg/dL Total Bilirubin (0.2-1.3) mg/dL AST (17-59) U/L ALT (0-50) U/L Alkaline Phosphatase (38-126) U/L Serum Total Protein (6.3-8.2) g/dL Albumin (3.5-5.0) g/dL 01/25/19 Range/Units 05:15 WBC (4.0-10.5) K/mm3 RBC (4.1-5.6) M/mm3 Hgb (12.5-18.0) gm/dl Hct (42-50) % MCV (78-100) fl MCH (26-32) pg MCHC (32-36) g/dl RDW (11.5-14.0) % Plt Count (150-450) K/mm3 MPV (6-9.5) fl Gran % (36.0-66.0) % Eos # (Auto) (0-0.5) Absolute Lymphs (auto) (1.0-4.6) Absolute Monos (auto) (0.0-1.3) Lymphocytes % (24.0-44.0) % Monocytes % (0.0-12.0) % Eosinophils % (0.00-5.0) % Basophils % (0.0-0.4) % Absolute Granulocytes (1.4-6.9) Basophils # (0-0.4) Sodium 135 L (137-145) mmol/L Potassium 3.4 L (3.5-5.1) mmol/L Chloride 101 (98-107) mmol/L Carbon Dioxide 28 (22-30) mmol/L Anion Gap 9.6 (5-15) MEQ/L BUN 13 (9-20) mg/dL Creatinine 0.59 L (0.66-1.25) mg/dL Estimated GFR > 60.0 ML/MIN Glucose 103 (74-106) mg/dL Calcium 8.2 L (8.4-10.2) mg/dL Total Bilirubin 0.70 (0.2-1.3) mg/dL AST 52 (17-59) U/L ALT 61 H (0-50) U/L Alkaline Phosphatase 57 (38-126) U/L Serum Total Protein 6.7 (6.3-8.2) g/dL Albumin 3.5 (3.5-5.0) g/dL Radiology Exams: Radiology Procedures Category Date Time Status ABDOMEN AND PELVIS W CONTRAST [CT] Stat Exams 01/23/19 18:44 Completed CHEST 1 VIEW (PORTABLE) Routine Exams 01/24/19 07:58 Completed Assessment/Plan (1) Umbilical hernia, incarcerated Current Visit: Yes Status: Acute Assessment & Plan: POD #1 s/p lap hernia repair, ok to d/c when cleared by surgery Code(s): K42.0 - UMBILICAL HERNIA WITH OBSTRUCTION, WITHOUT GANGRENE (2) Dehydration Current Visit: Yes Status: Acute Assessment & Plan: resolved Code(s): E86.0 - DEHYDRATION (3) UTI (urinary tract infection) Current Visit: Yes Status: Acute Assessment & Plan: will d/c on bactrim, currently on rocephin, sens on culture Code(s): N39.0 - URINARY TRACT INFECTION, SITE NOT SPECIFIED
--- NOTE | 2019-01-25 08:43 | OP ---
SURGERY DATE/TIME: 01/24/2019 1429 PREOPERATIVE DIAGNOSIS: Incarcerated umbilical hernia with small bowel obstruction. POSTOPERATIVE DIAGNOSES: Incarcerated umbilical hernia with small bowel obstruction. PROCEDURES: 1) Diagnostic laparoscopy. 2) Laparoscopic repair of incarcerated umbilical hernia with mesh. SURGEON: Derek Patel M.D. ANESTHESIA: General. SPECIMEN: Hernia sac and contents. ESTIMATED BLOOD LOSS: Minimal. COMPLICATIONS: None. FINDINGS: Some bruising of the small intestines that were previously incarcerated but completely viable now with a 2 cm umbilical hernia defect with some incarcerated fat. PATIENT PRESENTATION: This patient presents with an incarcerated umbilical hernia with small bowel obstruction secondary to bowel incarceration that was manually reduced by the emergency room physician. Risks and benefits of surgery discussed with the patient and the patient wished to proceed with surgery. DESCRIPTION OF PROCEDURE: The patient was brought to the OR and placed supine on the operating table with left arm up. Placed under general anesthesia. Abdomen was prepped and draped in sterile fashion. Incision made in left upper quadrant. Veress needle inserted. Pneumoperitoneum obtained. A 5 mm optical trocar inserted left upper quadrant and the abdomen entered under direct visualization and the area was inspected. There did not appear to be any inadvertent injury. Additional 5 mm trocars were placed left mid abdomen and left lower quadrant. Under direct visualization the upper trocar was exchanged for 12 mm trocar. The scope was inserted. The bowel was evaluated. It was almost immediately obvious that a loop of bowel that have previously incarcerated. It was bruised on the antimesenteric border that looked completely viable. There was no concern over this bowel. The bowel was ran proximally and distally. Proximally the bowel was dilated but not that significantly dilated and it was decompressed. This did appear to be the transition point. However it appeared that the obstruction was not resolved. The proximal bowel was really not that dilated. Attention is then turned to the hernia. The peritoneum was removed from around the hernia with hook electrocautery. The preperitoneal fat was pulled out of the hernia and the hernia sac pulled out from the hernia defect and then transected from the umbilicus with hook electrocautery. The peritoneum, hernia sac and some of the preperitoneal fat were excised and sent as "Hernia sac and contents". 0 Ethibond suture was then used to laparoscopically sew in a figure-of-8 suture to close the defect and catch a piece of the umbilical stalk to reattach the umbilicus to the fascia, this was tied and the needle removed from the abdomen. Two additional interrupted Ethibond sutures were placed with a suture passer after placing a stab wound at the superior aspect of the umbilicus to further approximate the defect. After these two sutures were placed the defect was completely closed and looked excellent. A [address] coated mesh was then inserted through the abdomen after first placing the stitch and then a 3-0 Vicryl stitch was then used to pull up with a suture passer at the umbilicus. The mesh was intact and in place with a capture circumferentially and then additional inner layer of tacks. Mesh laid completely flat. Abdomen had been desufflated to 10 mm of Mercury before tacking. The abdomen was inspected. The closure looked excellent. The omentum was pulled down over the intestines and the 12 mm trocar was removed and closed with #1 Vicryl suture with interrupted and then a figure-of-8. A figure-of-8 was placed for additional hemostasis as the second suture did cause some bleeding at the site. After creating a figure-of-8 the closure was hemostatic. It was inspected under low insufflation and was still hemostatic, some blood was suctioned out. The additional trocars were removed under direct visualization. The abdomen fully deflated. Wounds directly cleansed with Marcaine and was closed with 4-0 Vicryl sutures, Steri-Strips and dressings applied. The patient was recovered and taken to PACU in stable condition.
[2019-01-25] MEDS ORDERED: ENOXAPARIN SODIUM SQ SCH (10:00)
[2019-01-25] MEDS: Pepcid 20 MG VIAL IV SCH (10:44)
[2019-01-25 21:00] VITALS: BP 119/60; PULSE 70; O2SAT 95
[2019-01-25] MEDS ORDERED: BACTRIM DS TABLET PO STA (22:00)
--- NOTE | 2019-01-25 22:07 | PCM.DCORD ---
- Discharge Discharge Date: 01/25/19 Disposition: Home, Self-Care Condition: Good Prescriptions: New Sulfamethoxazole/Trimethoprim [Bactrim Ds Tablet] 1 each PO BID #11 tablet Additional Instructions: Written prescription as needed pain meds. Follow instructions on label from pharmacy. May use over the counter milk of mag for constipation as needed per bottle instructions. Use ice pack to site for comfort as needed for pain. Call Dr. Patel's office on Monday for a followup visit in1 week. Dr. Patel office number: [phone] Follow up with: REJI RASHEED MD [ACTIVE STAFF] - 1 Week KORI PATEL [ACTIVE STAFF] - 1 Week Forms: Discharge Instructions, Patient Portal Information
[2019-01-25] MEDS ORDERED: BACTRIM DS TABLET PO ONE (22:50)
[2020-01-25] MEDS ORDERED: Quelicin Fliptop 200 MG/10 ML IV ONE (10:00)
== END 2019-01-25 21:45 | disposition home or self-care (01) ==
LOC: ED 17:32 → MED SURG 22:01
PROVIDERS: ADMIT Family Medicine; ATTEND Family Medicine
DX: K42.0 Umbilical hernia with obstruction, without gangrene (principal); K56.609 Unspecified intestinal obstruction, unspecified as to partial versus complete obstruction; E86.0 Dehydration; N39.0 Urinary tract infection, site not specified
CPT/HCPCS: 36000; 36415; 71045; 74177; 80048; 80053; 80307; 81001; 82150; 83605; 83690; 85025; 87040; 87077; 87086; 87186; 88302; 93005; 94760; 96360; 96361; 96365; 96367; 96374; 96375; 99140; 99285; G0378; J0330; J0360; J0690; J0696; J1170; J1650; J2250; J2270; J2405; J2704; J3010; A9270-GY; G0480

== ENCOUNTER 2019-06-27 00:11 | Observation (INO) | payer MEDICAID ==
[2019-06-27] MEDS ORDERED: Sodium Chloride 0.9% 1000 ML 1,000 ML ONE (00:16)
[2019-06-27] MEDS ORDERED: MORPHINE SULFATE 2 MG INJ ONE ×2 (00:16→00:28)
[2019-06-27] MEDS ORDERED: Zofran 4 MG/2 ML VIAL ONE ×3 (00:22→16:14)
--- NOTE | 2019-06-27 00:22 | ERPHSYRPT ---
- History of Present Illness Time Seen by Provider: 06/27/19 00:15 Historian: patient, police Exam Limitations: clinical condition Physician History: 53 y/o white male smoker presents with lower midline chest and epigastric abd pain. pt has nkda, no meds and no cardiac hx. pt states cp radiates into left neck. 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 not exerting himself when he the pain started. pt walked to police station. police brought him into ed. Timing/Duration: today, hour(s) (2 tours captain) Quality: pressure, sharpness, stabbing Location: epigastric Chest Pain Radiation: jaw (left) Severity of Pain-Max: moderate Severity of Pain-Current: moderate Modifying Factors: Improves With: palpation Associated Symptoms: nausea, vomiting, abdominal pain (epigastric and right upper quad), No shortness of breath Prior Chest Pain/Cardiac Workup: no prior chest pain Nitro Today/Relief: no nitro taken today Aspirin Treatment Today: no aspirin today Allergies/Adverse Reactions: No Known Drug Allergies Allergy (Unverified 01/23/19 17:51) Hx Influenza Vaccination/Date Given: No Hx Pneumococcal Vaccination/Date Given: No - Review of Systems Constitutional: No Symptoms Eyes: No Symptoms Ears, Nose, & Throat: No Symptoms Respiratory: No Symptoms Cardiac: Chest Pain Abdominal/Gastrointestinal: Abdominal Pain, Nausea, Vomiting, No Diarrhea Genitourinary Symptoms: No Symptoms Musculoskeletal: No Symptoms Skin: No Symptoms Neurological: No Symptoms Psychological: No Symptoms Endocrine: No Symptoms Hematologic/Lymphatic: No Symptoms Immunological/Allergic: No Symptoms All Other Systems: Reviewed and Negative - Past Medical History Pertinent Past Medical History: No Neurological History: No Pertinent History ENT History: No Pertinent History Cardiac History: No Pertinent History Respiratory History: No Pertinent History Endocrine Medical History: No Pertinent History Musculoskeletal History: No Pertinent History GI Medical History: No Pertinent History History: No Pertinent History Psycho-Social History: No Pertinent History Male Reproductive Disorders: No Pertinent History - Past Surgical History Past Surgical History: No Neuro Surgical History: No Pertinent History Cardiac: No Pertinent History Respiratory: No Pertinent History Gastrointestinal: No Pertinent History Genitourinary: No Pertinent History Musculoskeletal: No Pertinent History Male Surgical History: No Pertinent History - Social History Smoking Status: Current every day smoker How long have you smoked: years Exposure to second hand smoke: Yes Drug Use: none Patient Lives Alone: No - Nursing Vital Signs Nursing Vital Signs: Initial Vital Signs Temperature 97.2 F 06/27/19 00:14 Pulse Rate 67 06/27/19 00:14 Respiratory Rate 16 06/27/19 00:14 Blood Pressure 181/102 06/27/19 00:14 O2 Sat by Pulse Oximetry 100 06/27/19 00:14 Pain Scale Pain Intensity 0 - Physical Exam General Appearance: moderate distress, alert, anxiety, obese Eye Exam: PERRL/EOMI, eyes nml inspection Ears, Nose, Throat Exam: normal ENT inspection, moist mucous membranes Neck Exam: normal inspection, non-tender, supple, full range of motion Respiratory Exam: normal breath sounds, chest tenderness, lungs clear, airway intact, No respiratory distress Cardiovascular Exam: regular rate/rhythm, normal heart sounds, normal peripheral pulses Gastrointestinal/Abdomen Exam: tenderness (right and epigastric), distention, guarding, rebound Rectal Exam: not done Back Exam: normal inspection, normal range of motion, vertebral tenderness, No CVA tenderness Extremity Exam: normal inspection, normal range of motion, pelvis stable Neurologic Exam: alert, oriented x 3, cooperative, operations agent II-XII nml as tested Skin Exam: normal color, warm, dry Lymphatic Exam: No adenopathy SpO2 Interpretation: normal SpO2: 100 O2 Delivery: Room Air - Course Nursing assessment & vital signs reviewed: Yes EKG Interpreted by Me: RATE (70), Sinus Rhythm, NORMAL AXIS, Other (comparison ekg on 01/24/19. no changes. no acute STEMI on most recent ekg. ) Ordered Tests: Active Orders 24 hr Category Date Time Status Medical Bill Processor STAT Care 06/27/19 00:23 Active EKG-ER Only STAT Care 06/27/19 00:23 Active EKG-ER Only STAT Care 06/27/19 00:29 Active IV Insertion STAT Care 06/27/19 00:23 Active Oxygen-ED Only Nasal Cannula 2 lpm Care 06/27/19 00:23 Active ABDOMEN AND PELVIS W/0 CONTRAS [CT] Stat Exams 06/27/19 00:46 Taken CHEST 1 VIEW (PORTABLE) Stat Exams 06/27/19 00:23 Taken CHEST WITHOUT CONTRAST [CT] Stat Exams 06/27/19 00:46 Taken AMYLASE Stat Lab 06/27/19 00:15 Completed CBC W DIFF Stat Lab 06/27/19 00:15 Completed CMP Stat Lab 06/27/19 00:15 Completed D-DIMER QUANTITATION Stat Lab 06/27/19 00:15 Completed LIPASE Stat Lab 06/27/19 00:15 Completed Lactic Acid Stat Lab 06/27/19 00:52 Completed Lactic Acid Stat Lab 06/27/19 03:54 Results NT PRO BNP Stat Lab 06/27/19 00:15 Completed TROPONIN Q3H Lab 06/27/19 00:15 Completed TROPONIN Q3H Lab 06/27/19 03:33 Completed TROPONIN Q3H Lab 06/27/19 06:30 Ordered TROPONIN Q3H Lab 06/27/19 09:30 Ordered TROPONIN Q3H Lab 06/27/19 12:30 Ordered Transfer Order Routine Transfer 06/27/19 Ordered Medication Summary Generic Name Dose Route Start Last Admin Trade Name Freq PRN Reason Stop Dose Admin Sodium Chloride 1,000 mls @ 100 mls/hr 06/27/19 00:30 06/27/19 00:18 Sodium Chloride 0.9% 1000 Ml IV 07/27/19 00:29 100 mls/hr .Q10H JESSICA Administration Ondansetron HCl 4 mg 06/27/19 00:24 06/27/19 00:23 Zofran 4 Mg/2 Ml Vial IV 07/27/19 00:23 4 mg Q6H PRN PRN Administration NAUSEA/VOMITING Discontinued Medications Generic Name Dose Route Start Last Admin Trade Name Freq PRN Reason Stop Dose Admin Al Hydrox/Mg Hydrox/Simethicone Confirm 06/27/19 00:49 Maalox Es 30 Ml Unit Dose Administered 06/27/19 00:50 Dose 30 ml .ROUTE .STK-MED ONE Aspirin 324 mg 06/27/19 00:23 06/27/19 00:15 Baby Aspirin 81 Mg Chew PO 06/27/19 00:24 324 mg STAT ONE Administration Hydromorphone HCl 1 mg 06/27/19 01:10 06/27/19 01:14 Hydromorphone 1 Mg/Ml Ampule IV 06/27/19 01:11 1 mg STAT ONE Administration Hydromorphone HCl Confirm 06/27/19 01:13 Hydromorphone 1 Mg/Ml Ampule Administered 06/27/19 01:14 Dose 1 mg .ROUTE .STK-MED ONE Sodium Chloride Confirm 06/27/19 00:16 Sodium Chloride 0.9% 1000 Ml Administered 06/27/19 00:17 Dose 1,000 mls @ ud .ROUTE .STK-MED ONE Lidocaine HCl Confirm 06/27/19 00:49 Xylocaine Hcl Viscous * Administered 06/27/19 00:50 Dose 15 ml .ROUTE .STK-MED ONE Magnesium Hydroxide 45 ml 06/27/19 00:32 06/27/19 00:49 Gi Cocktail 45 Ml (Maalox/Lidocaine) PO 06/27/19 00:33 45 ml STAT ONE Administration Morphine Sulfate Confirm 06/27/19 00:16 Morphine Sulfate 2 Mg Inj Administered 06/27/19 00:17 Dose 2 mg .ROUTE .STK-MED ONE Morphine Sulfate 2 mg 06/27/19 00:23 06/27/19 00:20 Morphine Sulfate 2 Mg Inj IV 06/27/19 00:24 2 mg STAT ONE Administration Morphine Sulfate 2 mg 06/27/19 00:28 06/27/19 00:29 Morphine Sulfate 2 Mg Inj IV 06/27/19 00:29 2 mg STAT ONE Administration Morphine Sulfate Confirm 06/27/19 00:28 Morphine Sulfate 2 Mg Inj Administered 06/27/19 00:29 Dose 2 mg .ROUTE .STK-MED ONE Nitroglycerin 0.4 mg 06/27/19 00:23 06/27/19 00:15 Nitrostat 0.4 Mg (Ed) SL 06/27/19 00:24 0.4 mg STAT ONE Administration Ondansetron HCl Confirm 06/27/19 00:22 Zofran 4 Mg/2 Ml Vial Administered 06/27/19 00:23 Dose 4 mg .ROUTE .STK-MED ONE Lab/Rad Data: Laboratory Result Diagrams 06/27/19 00:15 06/27/19 00:15 Laboratory Results 06/27/19 06/27/19 06/27/19 Range/Units 03:54 03:33 00:52 WBC (4.0-10.5) K/mm3 RBC (4.1-5.6) M/mm3 Hgb (12.5-18.0) gm/dl Hct (42-50) % MCV (78-100) fl MCH (26-32) pg MCHC (32-36) g/dl RDW (11.5-14.0) % Plt Count (150-450) K/mm3 MPV (6-9.5) fl Gran % (36.0-66.0) % Eos # (Auto) (0-0.5) Absolute Lymphs (auto) (1.0-4.6) Absolute Monos (auto) (0.0-1.3) Lymphocytes % (24.0-44.0) % Monocytes % (0.0-12.0) % Eosinophils % (0.00-5.0) % Basophils % (0.0-0.4) % Absolute Granulocytes (1.4-6.9) Basophils # (0-0.4) D-Dimer (215-500) ng/mL Sodium (137-145) mmol/L Potassium (3.5-5.1) mmol/L Chloride (98-107) mmol/L Carbon Dioxide (22-30) mmol/L Anion Gap (5-15) MEQ/L BUN (9-20) mg/dL Creatinine (0.66-1.25) mg/dL Estimated GFR ML/MIN Glucose (74-106) mg/dL Lactic Acid 2.0 2.9 H (0.4-2.0) Calcium (8.4-10.2) mg/dL Total Bilirubin (0.2-1.3) mg/dL AST (17-59) U/L ALT (0-50) U/L Alkaline Phosphatase (38-126) U/L Troponin I < 0.012 (0.000-0.034) ng/mL NT-Pro-B Natriuret Pep (0-900) pg/mL Serum Total Protein (6.3-8.2) g/dL Albumin (3.5-5.0) g/dL Amylase (30-110) U/L Lipase (23-300) U/L 06/27/19 06/27/19 06/27/19 Range/Units 00:15 00:15 00:15 WBC (4.0-10.5) K/mm3 RBC (4.1-5.6) M/mm3 Hgb (12.5-18.0) gm/dl Hct (42-50) % MCV (78-100) fl MCH (26-32) pg MCHC (32-36) g/dl RDW (11.5-14.0) % Plt Count (150-450) K/mm3 MPV (6-9.5) fl Gran % (36.0-66.0) % Eos # (Auto) (0-0.5) Absolute Lymphs (auto) (1.0-4.6) Absolute Monos (auto) (0.0-1.3) Lymphocytes % (24.0-44.0) % Monocytes % (0.0-12.0) % Eosinophils % (0.00-5.0) % Basophils % (0.0-0.4) % Absolute Granulocytes (1.4-6.9) Basophils # (0-0.4) D-Dimer 216 (215-500) ng/mL Sodium (137-145) mmol/L Potassium (3.5-5.1) mmol/L Chloride (98-107) mmol/L Carbon Dioxide (22-30) mmol/L Anion Gap (5-15) MEQ/L BUN (9-20) mg/dL Creatinine (0.66-1.25) mg/dL Estimated GFR ML/MIN Glucose (74-106) mg/dL Lactic Acid (0.4-2.0) Calcium (8.4-10.2) mg/dL Total Bilirubin (0.2-1.3) mg/dL AST (17-59) U/L ALT (0-50) U/L Alkaline Phosphatase (38-126) U/L Troponin I < 0.012 (0.000-0.034) ng/mL NT-Pro-B Natriuret Pep (0-900) pg/mL Serum Total Protein (6.3-8.2) g/dL Albumin (3.5-5.0) g/dL Amylase 52 (30-110) U/L Lipase 117 (23-300) U/L 06/27/19 06/27/19 Range/Units 00:15 00:15 WBC 11.2 H (4.0-10.5) K/mm3 RBC 5.54 (4.1-5.6) M/mm3 Hgb 17.5 (12.5-18.0) gm/dl Hct 52.2 H (42-50) % MCV 94.2 (78-100) fl MCH 31.6 (26-32) pg MCHC 33.5 (32-36) g/dl RDW 12.8 (11.5-14.0) % Plt Count 231 (150-450) K/mm3 MPV 11.3 H (6-9.5) fl Gran % 72.6 H (36.0-66.0) % Eos # (Auto) 0.20 (0-0.5) Absolute Lymphs (auto) 2.19 (1.0-4.6) Absolute Monos (auto) 0.64 (0.0-1.3) Lymphocytes % 19.5 L (24.0-44.0) % Monocytes % 5.7 (0.0-12.0) % Eosinophils % 1.8 (0.00-5.0) % Basophils % 0.4 (0.0-0.4) % Absolute Granulocytes 8.16 H (1.4-6.9) Basophils # 0.05 (0-0.4) D-Dimer (215-500) ng/mL Sodium 143 (137-145) mmol/L Potassium 4.0 (3.5-5.1) mmol/L Chloride 101 (98-107) mmol/L Carbon Dioxide 32 H (22-30) mmol/L Anion Gap 13.7 (5-15) MEQ/L BUN 16 (9-20) mg/dL Creatinine 0.74 (0.66-1.25) mg/dL Estimated GFR > 60.0 ML/MIN Glucose 123 H (74-106) mg/dL Lactic Acid (0.4-2.0) Calcium 10.3 H (8.4-10.2) mg/dL Total Bilirubin 0.40 (0.2-1.3) mg/dL AST 90 H (17-59) U/L ALT 110 H (0-50) U/L Alkaline Phosphatase 62 (38-126) U/L Troponin I (0.000-0.034) ng/mL NT-Pro-B Natriuret Pep 45.7 (0-900) pg/mL Serum Total Protein 8.7 H (6.3-8.2) g/dL Albumin 4.6 (3.5-5.0) g/dL Amylase (30-110) U/L Lipase (23-300) U/L - Progress Progress: improved, re-examined Air Movement: good Progress Note: 06/27/19 02:36 repeat ekg at 0040 on 06/27/19. hr 53, nl axis. nl qrs. sinus bradycardi ct abd/pelvis-cholelithiasis without acute cholecystitis. gallstone in neck of gb. ct chest-no acute process pt clinical is much improved. no cp. mild ruq abd pain 06/27/19 05:40 pt resting comfortably. spoke with dr. joseph. i reviewed pt hx, condition, lab, ekg and ct abd/pelvis. ok to place in obs. plan for gb u/s, and obtain gen surg consult Blood Culture(s) Obtained: No Antibiotics given: No Discussed with : Nery Counseled pt/family regarding: lab results, diagnosis, need for follow-up, rad results - Departure Departure Disposition: Observation Clinical Impression: Cholelithiasis, Non-cardiac chest pain Condition: Stable Critical Care Time: No Referrals: DOCTOR,NO FAMILY [Primary Care Provider] -
[2019-06-27] MEDS ORDERED: BABY ASPIRIN 81 MG CHEW PO ONE (00:23)
[2019-06-27] MEDS ORDERED: MORPHINE SULFATE 2 MG INJ IV ONE ×2 (00:23→00:28)
[2019-06-27] MEDS ORDERED: Nitrostat 0.4 MG (ED) SL ONE (00:23)
[2019-06-27] MEDS ORDERED: Zofran 4 MG/2 ML VIAL IV PRN ×2 (00:24→06:12)
[2019-06-27] MEDS ORDERED: Sodium Chloride 0.9% 1000 ML 1,000 ML IV SCH ×2 (00:30→06:12)
[2019-06-27] MEDS ORDERED: GI COCKTAIL 45 ML (Maalox/Lidocaine) PO ONE (00:32)
[2019-06-27 00:40] LABS: Absolute Neutrophil Ct (ANC) 8.16 (1.4-6.9); BASOPHIL % 0.4 % (0.0-0.4); Basophil (Absolute #) 0.05 (0-0.4); Eosinophil % 1.8 % (0.00-5.0); Hematocrit 52.2 % (42-50); Hemoglobin 17.5 gm/dl (12.5-18.0); Lymphocyte (Absolute #) 2.19 (1.0-4.6); Lymphocytes % 19.5 % (24.0-44.0); Mean Cell Volume 94.2 fl (78-100); Mean Corpuscular Hemoglobin 31.6 pg (26-32); Mean Corpuscular Hgb Concent. 33.5 g/dl (32-36); Mean Platelet Volume 11.3 fl (6-9.5); Monocyte (Absolute #) 0.64 (0.0-1.3); Monocytes % 5.7 % (0.0-12.0); Neutrophil % 72.6 % (36.0-66.0); Platelet Count 231 K/mm3 (150-450); Red Blood Count 5.54 M/mm3 (4.1-5.6); Red Cell Distribution Width 12.8 % (11.5-14.0); White Blood Count 11.2 K/mm3 (4.0-10.5)
[2019-06-27] MEDS ORDERED: XYLOCAINE HCl Viscous ONE (00:49)
[2019-06-27] MEDS ORDERED: MAALOX ES 30 ML UNIT DOSE ONE (00:49)
[2019-06-27 00:59] LABS: ALBUMIN 4.6 g/dL (3.5-5.0); ALKALINE PHOSPHATASE 62 U/L (38-126); ANION GAP 13.7 MEQ/L (5-15); BLOOD UREA NITROGEN 16 mg/dL (9-20); CHLORIDE 101 mmol/L (98-107); Calcium 10.3 mg/dL (8.4-10.2); Carbon Dioxide 32 mmol/L (22-30); Creatinine 1 0.74 mg/dL (0.66-1.25); Glucose 123 mg/dL (74-106); NT PRO BNP 45.7 pg/mL (0-900); SGOT/AST 90 U/L (17-59); SGPT/ALT 110 U/L (0-50); SODIUM 143 mmol/L (137-145); Total Protein 8.7 g/dL (6.3-8.2)
[2019-06-27 00:59] LABS: Lactic Acid 2.9 (0.4-2.0)
[2019-06-27] MEDS ORDERED: Hydromorphone 1 mg/ml Ampule IV ONE (01:10)
[2019-06-27 01:11] LABS: AMYLASE 52 U/L (30-110); LIPASE 117 U/L (23-300)
[2019-06-27] MEDS ORDERED: Hydromorphone 1 mg/ml Ampule ONE (01:13)
[2019-06-27] MEDS ORDERED: FEVERALL 650 MG PR PRN (06:12)
--- NOTE | 2019-06-27 08:26 | PCM.HP ---
History of Present Illness - Chief Complaint Chief Complaint: cholelithiasis symptomatic Date: 06/27/19 History of Present Illness: is a 53 year old male seen this am following ER admission for acute cholecystitis and cholelithiasis. Patient initially presented to ER due to severe chest pain. Patient reports that he has had chest pain like that over the past 2-3 months but this time the pain was worse. Patient reports that his pain has improved and is 3/10 this am. Patient reports that he had some nausea last night without vomiting. He reports his nausea has improved as well. Patient reports he felt feverish and was having chills last evening as well. Patient denies any other concerns at this time. - Review of Systems Constitutional: Fever, Chills Eyes: Other (Reports blurry vision occasionally) Ears, Nose, & Throat: Nose Congestion, Nose Discharge, No Ear Pain, No Throat Swelling Respiratory: Cough (occasional ), Short Of Breath (occasional) Cardiac: Chest Pain, No Edema Abdominal/Gastrointestinal: Abdominal Pain, Nausea, Constipation, No Vomiting, No Diarrhea Genitourinary Symptoms: No Dysuria, No Frequency, No Hematuria Musculoskeletal: No Symptoms Neurological: Other (migraines) Psychological: Drug Abuse (occasional marijuana use), No Alcohol Abuse (Denies) Medications & Allergies Home Medications: Home Medication List No Reportable Medications [No Reported Medications] 06/27/19 [History Confirmed 06/27/19] Allergies/Adverse Reactions: Allergies Allergy/AdvReac Type Severity Reaction Status Date / Time No Known Drug Allergies Allergy Unverified 01/23/19 17:51 - Past Medical History Past Medical History: Yes Neurological History: No Pertinent History ENT History: No Pertinent History Cardiac History: No Pertinent History Respiratory History: No Pertinent History Endocrine Medical History: No Pertinent History Musculoskelatal History: Other GI Medical History: Hernia (Ventral abdominal hernia repair performed by [facility]) History: No Pertinent History Pyscho-Social History: No Pertinent History Male Reproductive Disorders: No Pertinent History Comment: back issues, arthritic spurs - Past Surgical History Past Surgical History: Yes Neuro Surgical History: No Pertinent History Cardiac History: No Pertinent History Respiratory Surgery: No Pertinent History GI Surgical History: Hernia Repair Genitourinary Surgical Hx: No Pertinent History Musculskeletal Surgical Hx: No Pertinent History Male Surgical History: No Pertinent History Other Surgical History: hernia surgery, jaw surgery - Social History Smoking Status: Current every day smoker How long have you smoked: 30 Exposure to second hand smoke: Yes Alcohol: None Drug Use: marijuana - Physical Exam Vital Signs: Vital Signs - 24 hr Temp Pulse Pulse Resp BP Pulse Ox 06/27/19 07:29 97.6 F 68 18 122/73 95 06/27/19 06:50 97 06/27/19 06:21 97.6 F 68 18 122/73 95 06/27/19 05:51 100 06/27/19 05:50 70 14 118/72 97 06/27/19 05:30 71 14 115/70 97 06/27/19 04:40 65 15 111/74 95 06/27/19 03:50 60 12 112/73 99 06/27/19 03:40 60 15 131/82 100 06/27/19 02:50 53 L 12 166/82 99 06/27/19 02:40 67 14 166/82 98 06/27/19 01:50 55 L 15 177/103 97 06/27/19 01:19 55 L 15 176/105 100 06/27/19 00:19 67 06/27/19 00:14 97.2 F 67 16 181/102 100 Oxygen-Last 24 hours O2 Percentage 2 Liters = 28% O2 Percentage 2 Liters = 28% O2 Percentage 2 Liters = 28% O2 Percentage 2 Liters = 28% O2 Percentage 2 Liters = 28% O2 Percentage 2 Liters = 28% O2 Percentage 2 Liters = 28% O2 Percentage 2 Liters = 28% O2 Percentage 2 Liters = 28% General Appearance: no apparent distress Neurologic Exam: alert, oriented x 3, cooperative, normal mood/affect Eye Exam: eyes nml inspection Ears, Nose, Throat Exam: other (missing teeth) Respiratory Exam: normal breath sounds, lungs clear, No chest tenderness, No respiratory distress, No crackles/rales, No rhonchi, No wheezing Cardiovascular Exam: normal heart sounds, irregular (possibly related to breathing) Gastrointestinal/Abdomen Exam: soft, normal bowel sounds, tenderness (RUQ and epigastric), rebound Extremity Exam: normal inspection, No pedal edema, No swelling, No tenderness Skin Exam: normal color, warm, dry, No jaundice Results - Labs Lab/Micro Results: Lab Results-Last 24 Hours 06/27/19 06/27/19 06/27/19 Range/Units 00:15 00:15 00:15 WBC 11.2 H (4.0-10.5) K/mm3 RBC 5.54 (4.1-5.6) M/mm3 Hgb 17.5 (12.5-18.0) gm/dl Hct 52.2 H (42-50) % MCV 94.2 (78-100) fl MCH 31.6 (26-32) pg MCHC 33.5 (32-36) g/dl RDW 12.8 (11.5-14.0) % Plt Count 231 (150-450) K/mm3 MPV 11.3 H (6-9.5) fl Gran % 72.6 H (36.0-66.0) % Eos # (Auto) 0.20 (0-0.5) Absolute Lymphs (auto) 2.19 (1.0-4.6) Absolute Monos (auto) 0.64 (0.0-1.3) Lymphocytes % 19.5 L (24.0-44.0) % Monocytes % 5.7 (0.0-12.0) % Eosinophils % 1.8 (0.00-5.0) % Basophils % 0.4 (0.0-0.4) % Absolute Granulocytes 8.16 H (1.4-6.9) Basophils # 0.05 (0-0.4) D-Dimer 216 (215-500) ng/mL Sodium 143 (137-145) mmol/L Potassium 4.0 (3.5-5.1) mmol/L Chloride 101 (98-107) mmol/L Carbon Dioxide 32 H (22-30) mmol/L Anion Gap 13.7 (5-15) MEQ/L BUN 16 (9-20) mg/dL Creatinine 0.74 (0.66-1.25) mg/dL Estimated GFR > 60.0 ML/MIN Glucose 123 H (74-106) mg/dL Lactic Acid (0.4-2.0) Calcium 10.3 H (8.4-10.2) mg/dL Total Bilirubin 0.40 (0.2-1.3) mg/dL AST 90 H (17-59) U/L ALT 110 H (0-50) U/L Alkaline Phosphatase 62 (38-126) U/L Troponin I (0.000-0.034) ng/mL NT-Pro-B Natriuret Pep 45.7 (0-900) pg/mL Serum Total Protein 8.7 H (6.3-8.2) g/dL Albumin 4.6 (3.5-5.0) g/dL Amylase (30-110) U/L Lipase (23-300) U/L 06/27/19 06/27/19 06/27/19 Range/Units 00:15 00:15 00:52 WBC (4.0-10.5) K/mm3 RBC (4.1-5.6) M/mm3 Hgb (12.5-18.0) gm/dl Hct (42-50) % MCV (78-100) fl MCH (26-32) pg MCHC (32-36) g/dl RDW (11.5-14.0) % Plt Count (150-450) K/mm3 MPV (6-9.5) fl Gran % (36.0-66.0) % Eos # (Auto) (0-0.5) Absolute Lymphs (auto) (1.0-4.6) Absolute Monos (auto) (0.0-1.3) Lymphocytes % (24.0-44.0) % Monocytes % (0.0-12.0) % Eosinophils % (0.00-5.0) % Basophils % (0.0-0.4) % Absolute Granulocytes (1.4-6.9) Basophils # (0-0.4) D-Dimer (215-500) ng/mL Sodium (137-145) mmol/L Potassium (3.5-5.1) mmol/L Chloride (98-107) mmol/L Carbon Dioxide (22-30) mmol/L Anion Gap (5-15) MEQ/L BUN (9-20) mg/dL Creatinine (0.66-1.25) mg/dL Estimated GFR ML/MIN Glucose (74-106) mg/dL Lactic Acid 2.9 H (0.4-2.0) Calcium (8.4-10.2) mg/dL Total Bilirubin (0.2-1.3) mg/dL AST (17-59) U/L ALT (0-50) U/L Alkaline Phosphatase (38-126) U/L Troponin I < 0.012 (0.000-0.034) ng/mL NT-Pro-B Natriuret Pep (0-900) pg/mL Serum Total Protein (6.3-8.2) g/dL Albumin (3.5-5.0) g/dL Amylase 52 (30-110) U/L Lipase 117 (23-300) U/L 06/27/19 06/27/19 06/27/19 Range/Units 03:33 03:54 06:19 WBC (4.0-10.5) K/mm3 RBC (4.1-5.6) M/mm3 Hgb (12.5-18.0) gm/dl Hct (42-50) % MCV (78-100) fl MCH (26-32) pg MCHC (32-36) g/dl RDW (11.5-14.0) % Plt Count (150-450) K/mm3 MPV (6-9.5) fl Gran % (36.0-66.0) % Eos # (Auto) (0-0.5) Absolute Lymphs (auto) (1.0-4.6) Absolute Monos (auto) (0.0-1.3) Lymphocytes % (24.0-44.0) % Monocytes % (0.0-12.0) % Eosinophils % (0.00-5.0) % Basophils % (0.0-0.4) % Absolute Granulocytes (1.4-6.9) Basophils # (0-0.4) D-Dimer (215-500) ng/mL Sodium (137-145) mmol/L Potassium (3.5-5.1) mmol/L Chloride (98-107) mmol/L Carbon Dioxide (22-30) mmol/L Anion Gap (5-15) MEQ/L BUN (9-20) mg/dL Creatinine (0.66-1.25) mg/dL Estimated GFR ML/MIN Glucose (74-106) mg/dL Lactic Acid 2.0 (0.4-2.0) Calcium (8.4-10.2) mg/dL Total Bilirubin (0.2-1.3) mg/dL AST (17-59) U/L ALT (0-50) U/L Alkaline Phosphatase (38-126) U/L Troponin I < 0.012 < 0.012 (0.000-0.034) ng/mL NT-Pro-B Natriuret Pep (0-900) pg/mL Serum Total Protein (6.3-8.2) g/dL Albumin (3.5-5.0) g/dL Amylase (30-110) U/L Lipase (23-300) U/L 06/27/19 Range/Units 06:23 WBC (4.0-10.5) K/mm3 RBC (4.1-5.6) M/mm3 Hgb (12.5-18.0) gm/dl Hct (42-50) % MCV (78-100) fl MCH (26-32) pg MCHC (32-36) g/dl RDW (11.5-14.0) % Plt Count (150-450) K/mm3 MPV (6-9.5) fl Gran % (36.0-66.0) % Eos # (Auto) (0-0.5) Absolute Lymphs (auto) (1.0-4.6) Absolute Monos (auto) (0.0-1.3) Lymphocytes % (24.0-44.0) % Monocytes % (0.0-12.0) % Eosinophils % (0.00-5.0) % Basophils % (0.0-0.4) % Absolute Granulocytes (1.4-6.9) Basophils # (0-0.4) D-Dimer (215-500) ng/mL Sodium (137-145) mmol/L Potassium (3.5-5.1) mmol/L Chloride (98-107) mmol/L Carbon Dioxide (22-30) mmol/L Anion Gap (5-15) MEQ/L BUN (9-20) mg/dL Creatinine (0.66-1.25) mg/dL Estimated GFR ML/MIN Glucose (74-106) mg/dL Lactic Acid 1.3 (0.4-2.0) Calcium (8.4-10.2) mg/dL Total Bilirubin (0.2-1.3) mg/dL AST (17-59) U/L ALT (0-50) U/L Alkaline Phosphatase (38-126) U/L Troponin I (0.000-0.034) ng/mL NT-Pro-B Natriuret Pep (0-900) pg/mL Serum Total Protein (6.3-8.2) g/dL Albumin (3.5-5.0) g/dL Amylase (30-110) U/L Lipase (23-300) U/L - Radiology Impressions Radiology Exams & Impressions: Radiology Procedures Category Date Time Status ABDOMEN AND PELVIS W/0 CONTRAS [CT] Stat Exams 06/27/19 00:46 Taken CHEST 1 VIEW (PORTABLE) Stat Exams 06/27/19 00:23 Taken CHEST WITHOUT CONTRAST [CT] Stat Exams 06/27/19 00:46 Taken GALLBLADDER [US] Stat Exams 06/27/19 06:12 Ordered Assessment/Plan (1) Acute cholecystitis Current Visit: Yes Status: Acute Assessment & Plan: Patient had imaging done for evaluation of chest pain which demonstrated a gallstone in the neck of gallbladder. Patient reports that his pain is better with diluadid and that morphine did not touch it. Will keep on diluadid 1 mg every 4 hours. Surgery has been consulted and will await their evaluation. Patient will remain NPO until US is performed and we hear from surgery. Patient also has zofran prn for nausea. Will continue to manage pain. Liver enzymes were mildly elevated WBC was mildly elevated and we may need to start patient on antibiotics if it is trending up. Will get tbili level as well. Pancreatic enzymes were wnl. Will consider repeat if he has worsening pain. Code(s): K81.0 - ACUTE CHOLECYSTITIS (2) Cholelithiasis Current Visit: Yes Status: Acute Assessment & Plan: Patient will likely need cholecystectomy. Unsure if patient needs ERCP or MRCP. Will follow surgery recs (3) Smoker Current Visit: Yes Status: Acute Assessment & Plan: Patient smokes 1ppd. Discussed nicotine patch and patient felt like he would benefit from having one. Code(s): F17.200 - NICOTINE DEPENDENCE, UNSPECIFIED, UNCOMPLICATED (4) Non-cardiac chest pain Current Visit: Yes Status: Acute Assessment & Plan: ACS was ruled out with EKG and trops. Code(s): R07.89 - OTHER CHEST PAIN
[2019-06-27] MEDS: Nicoderm CQ 21 MG TOP SCH (08:39)
[2019-06-27] MEDS: DILAUDID 2 MG INJECTION IV PRN ×3 (08:39→17:37)
--- NOTE | 2019-06-27 09:01 | XRAY ---
Indication: Chest pain. Dyspnea, nausea, vomiting, dizziness. Multiple contiguous axial images obtained through the chest without contrast as ordered. Comparison: None Mild bilateral dependent atelectasis and small left posterior gutter calcified granuloma. No pulmonary mass/nodule, infiltrate, or effusion. Heart is not enlarged. Aorta is normal in course and caliber. Small left perihilar calcified nodes. No pathologic mediastinal lymphadenopathy. Bony thorax intact with mild degenerative changes throughout the spine and multilevel small Schmorl nodes. CT abdomen reported separately. Impression: 1. Evidence for old granulomatous disease. 2. Remaining CT chest without contrast exam is negative. Comment: Preliminary interpretation was made by [facility]. No discrepancy. CT DI 13.42
--- NOTE | 2019-06-27 09:03 | XRAY ---
Indication: Chest pain, short of breath, and diaphoresis. Comparison: January 24, 2019. Portable chest demonstrates stable left base calcified granuloma. Remaining heart and lungs normal. Bony thorax intact again with minimal degenerative changes. Impression: Stable nonacute chest with chronic features.
--- NOTE | 2019-06-27 09:07 | XRAY ---
Indication: Abdomen pain, nausea, vomiting, dyspnea, and dizziness. Multiple contiguous axial images obtained through the abdomen and pelvis without contrast as ordered. Comparison: January 23, 2019. CT chest reported separately. Stomach is distended with food/fluid. Noncontrasted stomach and bowel loops appear nonobstructed. Again mild fecal debris in the ascending and transverse colon. Minimal sigmoid diverticulosis. No free fluid/air. Gallbladder mildly distended with new 1.4 cm stone near the neck. Also new tiny gallstone/gravel. Stable hepatic cysts and nonobstructing left renal micro-calculus. Remaining pancreas, spleen, adrenal glands, kidneys, ureters, and bladder appear unremarkable for noncontrast exam. Stable mild aortoiliac calcification without AAA. Osseous structures intact again with mild degenerative changes throughout the thoracolumbar spine. Interval ventral hernia repair with intact mesh graft. Impression: 1. New distended gallbladder with cholelithiasis. Gallbladder sonogram may yield further information. 2. Stable sigmoid diverticulosis, hepatic cysts, and nonobstructing left renal micro-calculus. Comment: Preliminary interpretation was made by [facility]. No critical discrepancy. CT DI 13.42
[2019-06-27 09:43] LABS: Absolute Neutrophil Ct (ANC) 7.93 (1.4-6.9); BASOPHIL % 0.3 % (0.0-0.4); Basophil (Absolute #) 0.03 (0-0.4); Eosinophil % 2.9 % (0.00-5.0); Eosinophil (Absolute #) 0.35 (0-0.5); Hematocrit 49.7 % (42-50); Hemoglobin 16.6 gm/dl (12.5-18.0); Lymphocyte (Absolute #) 2.67 (1.0-4.6); Lymphocytes % 22.4 % (24.0-44.0); Mean Cell Volume 94.7 fl (78-100); Mean Corpuscular Hemoglobin 31.6 pg (26-32); Mean Corpuscular Hgb Concent. 33.4 g/dl (32-36); Mean Platelet Volume 10.8 fl (6-9.5); Monocyte (Absolute #) 0.92 (0.0-1.3); Monocytes % 7.7 % (0.0-12.0); Neutrophil % 66.7 % (36.0-66.0); Platelet Count 231 K/mm3 (150-450); Red Blood Count 5.25 M/mm3 (4.1-5.6); Red Cell Distribution Width 12.8 % (11.5-14.0); White Blood Count 11.9 K/mm3 (4.0-10.5)
[2019-06-27] MEDS ORDERED: SENOKOT 8.6 MG PO PRN (10:00)
[2019-06-27] MEDS ORDERED: SENOKOT 8.6 MG PO SCH (10:00)
[2019-06-27] MEDS: Pepcid 20 MG VIAL IV SCH (10:02)
[2019-06-27 10:48] LABS: ANION GAP 10.1 MEQ/L (5-15); BLOOD UREA NITROGEN 13 mg/dL (9-20); CHLORIDE 102 mmol/L (98-107); Calcium 9.2 mg/dL (8.4-10.2); Carbon Dioxide 33 mmol/L (22-30); Cholesterol 132 mg/dL (50-200); Creatinine 1 0.64 mg/dL (0.66-1.25); Glucose 93 mg/dL (74-106); HDL CHOLESTEROL 37 mg/dL (40-60); LDL, DIRECT 83 mg/dL (30-100); Potassium 4.4 mmol/L (3.5-5.1); Risk Ratio 3.6; SODIUM 141 mmol/L (137-145); TRIGLYCERIDE 75 mg/dL (30-150)
--- NOTE | 2019-06-27 10:52 | XRAY ---
Indication: Right upper quadrant pain. Nausea and vomiting. Two-dimensional gallbladder sonogram performed. Comparison: None. Pancreas not well-seen due to overlying bowel gas. Gallbladder normally distended with 1.5 cm gallstone near the neck. Gallbladder wall is thickened measuring 3.5 mm but no pericholecystic fluid. Common bile duct measures 5.5 mm. No intrahepatic biliary distention. Remaining visualized portions of the liver and right kidney appear sonographically unremarkable. Right kidney measures 10.5 cm in length. No ascites. Impression: 1. Cholelithiasis with gallbladder wall thickening. Rule out chronic cholecystitis. 2. Pancreas not well-visualized.
[2019-06-27] MEDS ORDERED: MEFOXIN 2 GM PREMIX** 2 GM/50 ML ML IV SCH (12:00)
[2019-06-27] MEDS ORDERED: Lactated Ringers 1,000 ML IV SCH ×2 (12:00→23:45)
[2019-06-27] MEDS ORDERED: Lactated Ringers 1,000 ML IV ONE ×2 (13:36→23:41)
[2019-06-27] MEDS ORDERED: Sensorcaine 0.25% 10 ML ONE (13:36)
[2019-06-27] MEDS ORDERED: Quelicin Fliptop 200 MG/10 ML ONE (14:24)
[2019-06-27] MEDS ORDERED: DIPRIVAN 200 MG/20 ML IV ONE (14:24)
[2019-06-27] MEDS ORDERED: Zemuron 100 MG/10 ML ONE ×2 (14:24→15:15)
[2019-06-27] MEDS ORDERED: SUBLIMAZE 100 MCG/2 ML ONE ×2 (14:24→16:14)
[2019-06-27] MEDS ORDERED: Decadron 4 MG INJ ONE (14:50)
[2019-06-27] MEDS ORDERED: TORAdol 30 mg Injection ONE (14:50)
[2019-06-27] MEDS ORDERED: BRIDION 200MG/2ML IV ONE (14:50)
[2019-06-27] MEDS ORDERED: APRESOLINE 20 MG/ML INJ ONE (15:32)
[2019-06-27] MEDS ORDERED: DILAUDID 2 MG INJECTION ONE (16:14)
[2019-06-27] MEDS ORDERED: Zofran 4 MG/2 ML VIAL IVIM PRN (17:28)
[2019-06-27] MEDS: NORCO 5/325 MG PO PRN (21:32)
[2019-06-27] MEDS: MEFOXIN 2 GM PREMIX** 2 GM/50 ML ML IV SCH (21:33)
[2019-06-28] MEDS: NORCO 5/325 MG PO PRN ×2 (03:21→09:57)
[2019-06-28 04:38] VITALS: O2SAT 96
[2019-06-28] MEDS: MEFOXIN 2 GM PREMIX** 2 GM/50 ML ML IV SCH (05:54)
[2019-06-28] MEDS: DILAUDID 2 MG INJECTION IV PRN (06:02)
--- NOTE | 2019-06-28 07:47 | CONS ---
CONSULT DATE: 06/27/2019 REASON FOR CONSULT: Abdominal pain. HISTORY: The patient presents with upper abdominal/lower chest pain that brought him to the emergency room. The attack had been quite severe. He still has some mild pain now but much less. He does think this was a half hour to hour after eating. He does remember a few attacks over the last several months after eating as well. His cardiac work up was negative and he was found to have acute calculus cholecystitis on ultrasound. He denies any fevers or other complaints. PAST MEDICAL HISTORY: None. PAST SURGICAL HISTORY: Laparoscopic umbilical hernia repair with mesh. MEDICATIONS: Please see MAR. ALLERGIES: NONE. SOCIAL HISTORY: Positive tobacco. FAMILY HISTORY: Noncontributory. PHYSICAL EXAMINATION: GENERAL: No acute distress. HEENT: Sclera nonicteric. Extraocular movements intact. NECK: Supple. No JVD. CHEST: Nonlabored breathing. ABDOMEN: Soft, nondistended, tender to palpation right upper quadrant. NEURO: Awake, alert, oriented. PSYCH: Appropriate mood and affect. LAB DATA AND TESTS: Ultrasound with gallstones and gallbladder wall thickening consistent with acute cholecystitis. Laboratory studies significant for white blood cell count of 11.2. His bilirubin and alkaline phosphatase were normal. ASSESSMENT AND PLAN: Acute calculus cholecystitis. PLAN: Laparoscopic possible open cholecystectomy. The risks and benefits of surgery discussed with the patient and the patient wishes to proceed with surgery.
[2019-06-28] MEDS: Nicoderm CQ 21 MG TOP SCH (08:04)
--- NOTE | 2019-06-28 08:06 | OP ---
SURGERY DATE/TIME: 06/27/2019 1437 PREOPERATIVE DIAGNOSIS: Acute calculous cholecystitis. POSTOPERATIVE DIAGNOSIS: Acute calculous cholecystitis. PROCEDURE: Laparoscopic cholecystectomy. SURGEON: Derek Patel M.D. ANESTHESIA: General. ESTIMATED BLOOD LOSS: 100 cc. COMPLICATIONS: None. SPECIMEN: Gallbladder. FINDINGS: Acute calculous cholecystitis. INDICATION: This patient presents with signs, symptoms and ultrasound findings consistent with acute calculus cholecystitis. After discussing risks and benefits of surgery the patient wished to proceed with surgery. DESCRIPTION OF PROCEDURE: The patient brought to the OR, placed in supine position on the operating table and placed under general anesthesia. The abdomen is prepped and draped in sterile fashion. A prior left upper quadrant incision reopened with a scalpel. Veress needle inserted. Pneumoperitoneum obtained. A 5 mm optical trocar inserted. Under direct visualization the abdomen is entered. The area of entry inspected. There did not appear to be any inadvertent injury. There was omentum stuck to a prior laparoscopic umbilical mesh and this area was avoided. He was placed in reverse Trendelenburg position and rolled to the left. An 11 mm trocar is placed to the right and superior to the umbilicus just above the mesh. Two - 5 mm trocars were placed in the right upper quadrant. Infundibulum retracted superior laterally. Fundus retracted inferior laterally. The patient's liver was quite heavy and made retraction more difficult and careful dissection was then performed of the triangle of [place] with hook electrocautery suction irrigated and [place] dissector. The tissue was edematous and quite friable and bled easily. The cystic artery was freed and circumferentially dissected. A lymph node was dissected free of the gallbladder and left down with the patient. The cystic duct was circumferentially dissected. About a third of the hepatocystic plate was cleared off and then there was a small posterior vessel that actually caused some bleeding and pressure was held for a while until the bleeding ceased and the field could be cleaned up and the anatomy further verified and this appeared to be a smaller posterior branch this was doubly clipped and transected. The cystic artery was then doubly clipped with 5 mm metal clips and transected. The cystic duct doubly clipped and transected as well with three clips on the patient's side and the gallbladder is further removed with electrocautery from the liver bed. The gallbladder fossa was irrigated and suctioned dry. It was hemostatic. A small piece of Surgicel was left over the area that had previously been bleeding but this was dry at this point. The right upper quadrant was again irrigated and suctioned dry. The gallbladder is removed through the 11 mm site requiring some stretching. There was one large stone and some smaller stones. The fascia was closed with 0 Vicryl suture with suture passer under direct visualization with a figure-of-8 suture. The remaining trocars were removed under direct visualization. The abdomen was desufflated. Wounds injected with 0.25% Marcaine. Wounds closed with 4-0 Vicryl suture, Steri-Strips and dressings were applied. The patient was recovered and taken to PACU in stable condition.
[2019-06-28 08:21] VITALS: BP 115/65; PULSE 67
--- NOTE | 2019-06-28 08:25 | PCM.DS ---
Discharge Summary Date of Admission: 06/27/19 06:08 Date of Discharge: 06/28/19 Admitting Physician: BROOKLYNN RODRÍGUEZ MD Consults: Consults on Case 06/27/19 06:12 Consult Surgery ROUTINE Primary Care Provider: BROOKLYNN RODRÍGUEZ MD Allergies Allergies No Known Drug Allergies Allergy (Unverified 01/23/19 17:51) Hospital Summary - Hospital Course Hospital Course: is a 53 year old male admitted from ER for acute cholecystitis and cholelithiasis. Patient initially presented to ER due to severe chest pain. Patient reports that he has had chest pain like that over the past 2-3 months but this time the pain was worse. Patient reports that his pain has improved and is 3/10 this am. Patient reports that he had some nausea last night without vomiting. He reports his nausea has improved as well. Patient reports he felt feverish and was having chills last evening as well. Patient was evaluated by surgery yesterday and it was determined that patient would be taken to sugery for lap michael. Please see sugery op note for details of the procedure. Patient reports that he did have vomiting immediately post op but has not had anymore episodes since. He reports that he attempted to eat a little yesterday and tolerated that ok. He has transitioned to a regular diet this am. He reports some mild RUQ pain but overall his pain has greatly improved. Plan for DC home today to follow up with surgery for post op and with PCP. - Vitals & Intake/Output Vital Signs: Vital Signs Temperature 98.2 F 06/28/19 08:00 Pulse Rate 67 06/28/19 08:00 Respiratory Rate 20 06/28/19 08:00 Blood Pressure 115/65 06/28/19 08:00 O2 Sat by Pulse Oximetry 96 06/28/19 08:00 Oxygen-Last Documented O2 Percentage 2 Liters = 28% Intake & Output: Intake & Output 06/25/19 06/26/19 06/27/19 06/28/19 11:59 11:59 11:59 11:59 Intake Total 0 3292 Output Total 1450 Balance 0 1842 Weight 101.4 kg 101.8 kg - Lab Result Diagrams: 06/27/19 09:15 06/27/19 09:15 Lab Results-Last 24 Hrs: Lab Results-Last 24 Hours 06/27/19 06/27/19 06/27/19 Range/Units 09:15 09:15 09:15 WBC 11.9 H (4.0-10.5) K/mm3 RBC 5.25 (4.1-5.6) M/mm3 Hgb 16.6 (12.5-18.0) gm/dl Hct 49.7 (42-50) % MCV 94.7 (78-100) fl MCH 31.6 (26-32) pg MCHC 33.4 (32-36) g/dl RDW 12.8 (11.5-14.0) % Plt Count 231 (150-450) K/mm3 MPV 10.8 H (6-9.5) fl Gran % 66.7 H (36.0-66.0) % Eos # (Auto) 0.35 (0-0.5) Absolute Lymphs (auto) 2.67 (1.0-4.6) Absolute Monos (auto) 0.92 (0.0-1.3) Lymphocytes % 22.4 L (24.0-44.0) % Monocytes % 7.7 (0.0-12.0) % Eosinophils % 2.9 (0.00-5.0) % Basophils % 0.3 (0.0-0.4) % Absolute Granulocytes 7.93 H (1.4-6.9) Basophils # 0.03 (0-0.4) Sodium 141 (137-145) mmol/L Potassium 4.4 (3.5-5.1) mmol/L Chloride 102 (98-107) mmol/L Carbon Dioxide 33 H (22-30) mmol/L Anion Gap 10.1 (5-15) MEQ/L BUN 13 (9-20) mg/dL Creatinine 0.64 L (0.66-1.25) mg/dL Estimated GFR > 60.0 ML/MIN Glucose 93 (74-106) mg/dL Calcium 9.2 (8.4-10.2) mg/dL Total Bilirubin (0.2-1.3) mg/dL Troponin I < 0.012 (0.000-0.034) ng/mL Triglycerides 75 (30-150) mg/dL Cholesterol 132 (50-200) mg/dL LDL Cholesterol 83 (30-100) mg/dL HDL Cholesterol 37 L (40-60) mg/dL Heart Disease Risk Ratio 3.6 06/27/19 06/27/19 Range/Units 09:15 12:30 WBC (4.0-10.5) K/mm3 RBC (4.1-5.6) M/mm3 Hgb (12.5-18.0) gm/dl Hct (42-50) % MCV (78-100) fl MCH (26-32) pg MCHC (32-36) g/dl RDW (11.5-14.0) % Plt Count (150-450) K/mm3 MPV (6-9.5) fl Gran % (36.0-66.0) % Eos # (Auto) (0-0.5) Absolute Lymphs (auto) (1.0-4.6) Absolute Monos (auto) (0.0-1.3) Lymphocytes % (24.0-44.0) % Monocytes % (0.0-12.0) % Eosinophils % (0.00-5.0) % Basophils % (0.0-0.4) % Absolute Granulocytes (1.4-6.9) Basophils # (0-0.4) Sodium (137-145) mmol/L Potassium (3.5-5.1) mmol/L Chloride (98-107) mmol/L Carbon Dioxide (22-30) mmol/L Anion Gap (5-15) MEQ/L BUN (9-20) mg/dL Creatinine (0.66-1.25) mg/dL Estimated GFR ML/MIN Glucose (74-106) mg/dL Calcium (8.4-10.2) mg/dL Total Bilirubin 0.40 (0.2-1.3) mg/dL Troponin I < 0.012 (0.000-0.034) ng/mL Triglycerides (30-150) mg/dL Cholesterol (50-200) mg/dL LDL Cholesterol (30-100) mg/dL HDL Cholesterol (40-60) mg/dL Heart Disease Risk Ratio - Radiology Exams Ordered Rad Exams-Entire Visit: Radiology Procedures Category Date Time Status ABDOMEN AND PELVIS W/0 CONTRAS [CT] Stat Exams 06/27/19 00:46 Completed CHEST 1 VIEW (PORTABLE) Stat Exams 06/27/19 00:23 Completed CHEST WITHOUT CONTRAST [CT] Stat Exams 06/27/19 00:46 Completed GALLBLADDER [US] Stat Exams 06/27/19 06:12 Completed - Procedures and Test Procedures and Tests throughout Hospitalization: Therapy Orders & Screens 06/27/19 06:42 Smoking Cessation Education ONCE Comment: Diagnosis: cholelithiasis symptomatic Smoking Status: Current every day smoker How long have you smoked: 30 Have you smoked in the past 12 months: Yes Approximately how many cigarettes per day: 20 Do you dip or chew tobacco: No 06/27/19 17:33 Oxygen NASAL CANNULA 2 lpm Comment: Diagnosis: cholelithiasis symptomatic Discharge Exam General Appearance: no apparent distress Neurologic Exam: alert, oriented x 3, cooperative, normal mood/affect Eye Exam: eyes nml inspection Ears, Nose, Throat Exam: moist mucous membranes Neck Exam: normal inspection Respiratory Exam: normal breath sounds, lungs clear, No chest tenderness, No crackles/rales, No rhonchi, No wheezing Cardiovascular Exam: regular rate/rhythm, normal heart sounds, other (No pedal edema), No murmur, No friction rub, No gallop Gastrointestinal/Abdomen Exam: normal bowel sounds, tenderness (Patient is tender RUQ and at incision sites. Patient has steri strips intact no visible drainage.), distention Skin Exam: normal color, warm, dry, No rash Final Diagnosis/Problem List - Final Discharge Diagnosis/Problem (1) Acute cholecystitis Current Visit: Yes Status: Acute Assessment & Plan: Patient had lap michael performed and symptoms have improved. Patient will discharge to home and follow up with surgery as instructed Code(s): K81.0 - ACUTE CHOLECYSTITIS (2) Cholelithiasis Current Visit: Yes Status: Acute (3) Smoker Current Visit: Yes Status: Acute Assessment & Plan: Patient has not been smoking because he has a nicotine patch. Patient would likely benefit from nicotine patch at home. Encouraged patient to continue with smoking cessation Code(s): F17.200 - NICOTINE DEPENDENCE, UNSPECIFIED, UNCOMPLICATED (4) Non-cardiac chest pain Current Visit: Yes Status: Acute Assessment & Plan: ACS was ruled out. Encouraged smoking cessation. Code(s): R07.89 - OTHER CHEST PAIN - Discharge Disposition: Home, Self-Care Condition: Stable Prescriptions: New Nicotine 21 mg [Nicoderm CQ 21 MG] 1 each TD DAILY #30 patch Hydrocodone/APAP 5-325 Tab^^^ [Covert 5-325 Tablet^^^] 1 tab PO Q4HPRN PRN 5 Days #20 tablet MDD 6 PRN Reason: Pain Follow up with: BROOKLYNN RODRÍGUEZ MD [Primary Care Provider] - 1 Week
[2019-06-28] MEDS: Pepcid 20 MG VIAL IV SCH (09:45)
[2019-06-28] MEDS ORDERED: FLUZONE QUAD 2019-2020 SYRINGE IM ONE (10:00)
== END 2019-06-28 11:02 | disposition home or self-care (01) ==
LOC: ED 00:11 → MED SURG 06:08
PROVIDERS: ADMIT Family Medicine; ATTEND Family Medicine
DX: K80.00 Calculus of gallbladder with acute cholecystitis without obstruction (principal); R07.89 Other chest pain; F17.200 Nicotine dependence, unspecified, uncomplicated
CPT/HCPCS: 36000; 36415; 71045; 71250; 74176; 76705; 80048; 80053; 80061; 82150; 82247; 83605; 83690; 83721; 83880; 84484; 85025; 85379; 90686; 93005; 93041; 94760; 96374; 96375; 96376; 99285; 99291; G0378; J0330; J0360; J0694; J1100; J1170; J1885; J2270; J2405; J2704; J3010; A9270-GY